=== PATIENT | male | born 1985 | race Caucasian/White ===

== ENCOUNTER 2023-10-10 10:04 | Outpatient (CLI) | payer MEDICAID | END 2023-10-10 10:05 | disposition critical access hospital (66) | LOC: EMS 10:04 | DX: T40.601A Poisoning by unspecified narcotics, accidental (unintentional), initial encounter (principal); R09.89 Other specified symptoms and signs involving the circulatory and respiratory systems | CPT/HCPCS: A0425; A0427; A0999 ==

== ENCOUNTER 2023-10-10 10:17 | Inpatient (IN) | payer MEDICAID ==
[2023-10-10] MEDS ORDERED: NALOXONE 0.4 MG/ML VIAL IVP STA (10:23)
[2023-10-10] MEDS ORDERED: ONDANSETRON 4 MG/2 ML VIAL IVP STA (10:23)
[2023-10-10] MEDS ORDERED: SODIUM CHLORIDE 0.9% 1,000 ML IV STA ×2 (10:23→12:47)
--- NOTE | 2023-10-10 10:31 | ED Physician Documentation ---
PD HPI OVERDOSE - Stated complaint Stated Complaint: OD - Chief complaint Chief Complaint: General - History obtained from History obtained from: EMS - Additional information Additional information: Patient is a 38-year-old male who was found unresponsive in a parked car near the [place] He initially was agonal with his respirations required bagging. He had oxygenation in the 80s on room air. He was initially given intranasal Narcan with no response and then given IV Narcan with improvement. Patient has woken up a little bit but has not provided any further information. He still appears quite drowsy. Per EMS there was marijuana found in the car but no other drug paraphernalia. History is limited as patient is not able to provide any. Review of Systems Unable to obtain: Confused PD PAST MEDICAL HISTORY - Allergies Allergies/Adverse Reactions: Allergies Allergy/AdvReac Type Severity Reaction Status Date / Time No Known Drug Allergies Allergy Verified 10/10/23 10:49 - Social History Does the pt smoke?: No Smoking Status: Never smoker PD ED PE NORMAL - General General: Well developed/nourished, Other (Alert to verbal, knows his name but otherwise not able to give any information) - HEENT HEENT: Atraumatic, PERRL, EOMI, Moist mucous membranes, Pharynx benign - Cardiac Cardiac: Strong equal pulses, Other (Tachycardic, regular rhythm) - Respiratory Respiratory: Other (Shallow respirations) - Abdomen Abdomen: Normal bowel sounds, Soft, Non tender, Non distended - Derm Derm: Warm and dry - Neuro Neuro: Other (Moves all extremities). No: Alert and oriented X 3 (Drowsy but responsive to verbal and painful stimuli) Results - Vitals Vitals: Vital Signs - 24 hr 10/10/23 10/10/23 10/10/23 10:23 10:26 10:41 Temperature 36 C L Heart Rate 129 H 103 H 125 H Respiratory 6 L 8 L 20 Rate Blood Pressure 129/92 H 116/62 122/84 H O2 Saturation 84 L 97 95 If not protocol : Oxygen Flow, liters/minute 10/10/23 10/10/23 10/10/23 11:08 11:15 11:18 Temperature Heart Rate 102 H 118 H 115 H Respiratory 18 19 14 Rate Blood Pressure 117/76 123/76 123/76 O2 Saturation 98 96 97 If not protocol 15 15 : Oxygen Flow, liters/minute 10/10/23 10/10/23 10/10/23 11:30 11:45 12:30 Temperature Heart Rate 98 96 93 Respiratory 19 20 20 Rate Blood Pressure 114/79 116/66 120/63 O2 Saturation 97 97 98 If not protocol 15 15 : Oxygen Flow, liters/minute 10/10/23 13:30 Temperature Heart Rate 99 Respiratory 18 Rate Blood Pressure 138/79 H O2 Saturation 95 If not protocol 15 : Oxygen Flow, liters/minute Oxygen O2 Source Non-rebreather mask - EKG (time done) 1036 EKG releavant findings:: EKG personally interpreted by author of this note. Relevant findings are: Rate 102, sinus tachycardia, no STEMI, QTc is 451, no prior for comparison - Labs Labs: Laboratory Tests 10/10/23 10/10/23 10/10/23 10:30 10:30 10:30 WBC 16.1 H RBC 5.85 Hgb 15.4 Hct 50.5 MCV 86.3 MCH 26.3 L MCHC 30.5 L RDW 14.7 Plt Count 353 MPV 9.1 Neut # (Auto) 12.9 H Lymph # (Auto) 1.6 [place] # (Auto) 1.3 H Eos # (Auto) 0.0 Baso # (Auto) 0.1 Absolute Nucleated RBC 0.00 Nucleated RBC % 0.0 Sodium 140 Potassium 4.1 Chloride 104 Carbon Dioxide 21 Anion Gap 15.0 H BUN 14 Creatinine 1.8 H Estimated GFR (MDRD) 42 L Glucose 109 H Lactic Acid Calcium 9.4 Magnesium 2.1 Total Bilirubin 0.4 AST 52 H ALT 61 H Alkaline Phosphatase 133 H Total Creatine Kinase 559 H B-Natriuretic Peptide 37 Total Protein 7.9 Albumin 4.6 Globulin 3.3 Albumin/Globulin Ratio 1.4 Lipase 128 H TSH 2.53 Salicylates < 1.5 Acetaminophen 0.2 Ethyl Alcohol < 10.0 10/10/23 13:24 WBC RBC Hgb Hct MCV MCH MCHC RDW Plt Count MPV Neut # (Auto) Lymph # (Auto) [place] # (Auto) Eos # (Auto) Baso # (Auto) Absolute Nucleated RBC Nucleated RBC % Sodium Potassium Chloride Carbon Dioxide Anion Gap BUN Creatinine Estimated GFR (MDRD) Glucose Lactic Acid 2.5 H Calcium Magnesium Total Bilirubin AST ALT Alkaline Phosphatase Total Creatine Kinase B-Natriuretic Peptide Total Protein Albumin Globulin Albumin/Globulin Ratio Lipase TSH Salicylates Acetaminophen Ethyl Alcohol PD Medical Decision Making - ED course Complexity details: reviewed results, re-evaluated patient, d/w patient ED course: Patient is a 38-year-old male presenting for evaluation after an overdose. He was found minimally responsive in a car with agonal respirations and hypoxia. He was given 2 doses of Narcan in the field, 1 intranasally and 1 IV with improvement in his respiratory effort as well as mentation. Here he is still requiring oxygen, still quite drowsy. Due to poor respiratory effort here he was given an additional dose of Narcan with improvement. However he continued to require oxygen. Labs were obtained including toxicology, CBC, chemistry. He does have an elevated white count of 16. Creatinine of 1.8 with unclear baseline. He is easily arousable to verbal stimuli but not able to answer questions really appropriately. At times he is able to tell me where he is but is unsure of what happened today. He does move all extremities. His x-ray demonstrates a consolidation in the left lobe which could be from aspiration. He was started on antibiotics. Blood cultures and a lactic were also obtained. We are unable to get a urine specimen in the emergency department As patient was not able to give a specimen. Due to ongoing hypoxia And somnolence discussed the case with admitting hospitalist will admit for further management. Do not think patient needs a Narcan drip at this time as he does have normal respiratory rate but is requiring oxygen. He also does wake up easily with verbal stimuli while in the emergency department. 1150 - Patient is more alert able to answer a few more questions. Knows that he is on [facility]. He still is not willing to answer many questions regarding what happened this morning or if he took any medications. States he could have had a chemical reaction but then states he does not know what he could have reacted to. 1340 - D/W Dr. San We will admit the patient for further management. Departure - Departure Disposition: ED Place in Observation Clinical Impression: Acute respiratory failure with hypoxia, CAP (community acquired pneumonia) Drug overdose Qualifiers: Encounter type: initial encounter Condition: Fair Discharge Date/Time: 10/10/23 14:47
[2023-10-10 10:38] LABS: BASOPHILS # (AUTO) 0.1 10^3/uL (0.0-0.1); BASOPHILS % (AUTO) 0.5 %; EOSINOPHILS % (AUTO) 0.2 %; HCT - HEMATOCRIT 50.5 % (42.0-52.0); HGB - HEMOGLOBIN 15.4 g/dL (14.0-18.0); LYMPHOCYTES # (AUTO) 1.6 10^3/uL (1.5-3.5); LYMPHOCYTES % (AUTO) 9.7 %; MEAN CORPUSCULAR HEMOGLOBIN 26.3 pg (27.0-31.0); MEAN CORPUSCULAR HGB CONC 30.5 g/dL (32.0-36.0); MEAN CORPUSCULAR VOLUME 86.3 fL (80.0-94.0); MEAN PLATELET VOLUME 9.1 fL (7.4-11.4); MONOCYTES # (AUTO) 1.3 10^3/uL (0.0-1.0); MONOCYTES % (AUTO) 8.2 %; NEUTROPHILS # (AUTO) 12.9 10^3/uL (1.5-6.6); NEUTROPHILS % (AUTO) 80.3 %; PLT - PLATELET COUNT 353 10^3/uL (130-450); RED BLOOD COUNT 5.85 10^6/uL (4.70-6.10); RED CELL DISTRIBUTION WIDTH 14.7 % (12.0-15.0); WHITE BLOOD COUNT 16.1 x10^3/uL (4.8-10.8)
[2023-10-10 10:56] LABS: ACETAMINOPHEN 0.2 ug/mL; ALBUMIN 4.6 g/dL (3.2-5.5); ALBUMIN/GLOBULIN RATIO 1.4 (1.0-2.2); ALKALINE PHOSPHATASE 133 IU/L (42-121); ALT ALANINE AMINOTRANSFERASE 61 IU/L (10-60); AST ASPARTATE AMINOTRANSFERASE 52 IU/L (10-42); BILIRUBIN,TOTAL 0.4 mg/dL (0.2-1.0); BUN - BLOOD UREA NITROGEN 14 mg/dL (6-20); CALCIUM 9.4 mg/dL (8.5-10.3); CARBON DIOXIDE - CO2 21 mmol/L (21-32); CHLORIDE 104 mmol/L (101-111); CK- CREATINE KINASE 559 IU/L (30-223); CREATININE 1.8 mg/dL (0.6-1.3); ETOH - ETHANOL < 10.0 mg/dL; GFR - MDRD 42 (>89); GLUCOSE 109 mg/dL (74-104); LIPASE 128 U/L (11-82); MAGNESIUM 2.1 mg/dL (1.7-2.3); POTASSIUM 4.1 mmol/L (3.5-4.5); SODIUM 140 mmol/L (135-145); TOTAL PROTEIN 7.9 g/dL (6.4-8.9)
--- NOTE | 2023-10-10 10:56 | XRAY Report ---
PROCEDURE: Chest 1 View X-Ray INDICATIONS: OD TECHNIQUE: One view of the chest was acquired. COMPARISON: None. FINDINGS: Left lower chest wall is excluded from the field of view, limiting evaluation. Surgical changes and devices: None. Lungs and pleura: Left lung multifocal patchy consolidation. Small left pleural effusion. No right p leural effusion. Right lung is clear. Mediastinum: Mediastinal contours appear normal. Heart size is normal. Bones and chest wall: No suspicious bony lesions. Overlying soft tissues appear unremarkable. IMPRESSION: Left lower chest wall is excluded from the field of view, limiting evaluation. 1.Left lung multifocal patchy consolidation suggestive of aspiration and/or pneumonia. 2.Small left pleural effusion. Reviewed by: Abdelrahman Swartz MD on 10/10/2023 10:55 AM [facility] Approved by: Abdelrahman Swartz MD on 10/10/2023 10:55 AM [facility] Station ID: [id number]
[2023-10-10 11:03] LABS: THYROID STIMULATING HORMONE 2.53 uIU/mL (0.34-5.60)
[2023-10-10 11:06] LABS: SALICYLATE < 1.5 mg/dL
[2023-10-10] MEDS ORDERED: AZITHROMYCIN INJ 500 MG in SODIUM CHLORIDE 0.9% 250 ML IV STA (12:50)
[2023-10-10] MEDS ORDERED: cefTRIAXone 1 GM VIAL IVP STA (12:50)
[2023-10-10] MEDS ORDERED: oxyCODONE 5 MG TABLET PO PRN (13:40)
[2023-10-10] MEDS ORDERED: ACETAMINOPHEN 325 MG TABLET PO PRN (13:40)
[2023-10-10] MEDS ORDERED: SODIUM CHLORIDE 0.9% 1,000 ML IV SCH (14:00)
--- NOTE | 2023-10-10 14:01 | HISTORY & PHYSICAL EXAMINATION ---
Chief Complaint - Chief Complaint Chief Complaint: Found unconscious History of Present Illness - Admitted From Admitted From:: His car parked on the street - History Obtained From Records [facility]ed[facility] History obtained from: Dr. Barba and his mother, Karina Heredia at [phone] Exam Limitations: Obtundation - History of Present Illness HPI Comment/Other: This is a 38-year-old male who lives in [facility] in [place]. 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 The patient is unable to give any meaningful history because of his sleepiness. I was able to get a hold of his mom who states that he does smoke cigarettes and he does smoke marijuana, but he has no history of alcohol abuse nor has he ever tried cocaine/heroin/LSD/methamphetamines to her knowledge. He was brought in by EMS. He was found in his car, it was parked and running [place] the [place] in [place]. He was in agonal respiration with O2 sat "low" but the number not stated. He received Narcan with minimal response. When he came to the emergency room temperature was 36, heart rate 129, blood pressure 129/92, respirations 6, and 84% on nasal cannula oxygen. In the emergency room the ER provider gave him Narcan IV push. He does wake up but is not verbal. Eyes were open but then he falls right back asleep. He received 2 L of IV fluids wide open. Chest x-ray had left lung multifocal opacity suggestive of aspiration. He was given Rocephin and azithromycin in the ER to treat that. He continues to be sleeping, minimally responsive, with normal vital signs. However he is on a 15 L nonrebreather and 02 sats at 97%. Emergency room provider has asked us to bring the patient in for xxpectant waiting. Hopefully he will recover from the substance he ingested. I specifically asked if he should go to the ICU or if he should be on a Narcan drip. At this time the emergency room provider I feel he does not need to do those things. In speaking to case management and reviewing [facility] criteria, he meets criteria for inpatient status. History - Past Medical History Cardiovascular: reports: None Respiratory: reports: None Neuro: reports: None Endocrine/Autoimmune: reports: None GI: reports: None : reports: None HEENT: reports: None Psych: reports: None Musculoskeletal: reports: None MRSA Hx?: No Other Past Medical History: The above negative family history was obtained from his mother over the phone when I called her. - Family & Social History Family History Comment/Other: Mom is 60 years old and has no major medical illnesses of diabetes, hypertension, cancer, heart attack or depression. Dad is 59 years old and also has no major medical illnesses. 1 sister is healthy. No children Living arrangement: At home Living Situation: With family Social History Notes: He lives with mom and dad. He does smoke cigarettes but she cannot tell me how much per day. He also smokes marijuana and she cannot tell me how much per day. 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 To her knowledge she does not have any history of alcohol abuse he does not have any history of recreational substance abuse other than the weed. - Substance History Use: Uses substance without health or social issues: Tobacco Abuse: Recurrent use of substance despite neg consequences: NONE Dependence: Experiences withdrawal or developed tolerances: NONE - POLST Patient has POLST: No POLST Status: Full Code Meds/Allgy - Allergies Allergies/Adverse Reactions: Allergies Allergy/AdvReac Type Severity Reaction Status Date / Time No Known Drug Allergies Allergy Verified 10/10/23 10:49 Review of Systems - Other Findings Other Findings: Review of systems unable to be obtained in this gentleman who is minimally resp onsive. Does open his eyes but unable to carry on a conversation Prior Level of Functionality: Per his mother, he is completely independent with activities of daily living. He drives a car, works, does his own laundry, helps clean the apartment. Full- time work. Exam - Vital Signs Reviewed Vital Signs: Yes Vital Signs: Vital Signs x48h Temp Pulse Resp BP Pulse Ox O2 Flow Rate 10/10/23 12:30 93 20 120/63 98 15 10/10/23 11:45 96 20 116/66 97 15 10/10/23 11:30 98 19 114/79 97 10/10/23 11:18 115 H 14 123/76 97 15 10/10/23 11:15 118 H 19 123/76 96 10/10/23 11:08 102 H 18 117/76 98 15 10/10/23 10:41 125 H 20 122/84 H 95 10/10/23 10:26 103 H 8 L 116/62 97 10/10/23 10:23 36 C L 129 H 6 L 129/92 H 84 L - Physical Exam General Appearance: positive: Moderate distress, Anxious, Other (Stocky male looks stated age, cannot sit still. Rocking back and forth in the bed, diaphoretic, unresponsive to voice commands. Does hear his mom but does not recognize her and calls her "Whats up doc". Occ smiles inappropriately to a question. No lucid thoughts or sentence structure) Eyes Bilateral: positive: PERRL (and are small but not pinpoint), EOMI ENT: positive: No signs of dehydration Neck: positive: No JVD. negative: Stiff neck Respiratory: positive: Rales (Left midlung and left base.), Other (Slight tachypnea but no use of accessory muscles. His breathing seems to be more from agitation.). negative: Wheezes, Rhonchi Cardiovascular: positive: Regular rate & rhythm, Tachycardia. negative: Systolic murmur Peripheral Pulses: positive: 1+ Abdomen: positive: Non-tender, No organomegaly, Nml bowel sounds, No distention, Other Skin: positive: Warm, Diaphoresis, Pallor Extremities: positive: Full ROM, No pedal edema Neurologic/Psychiatric: positive: CN's nml (2-12), Motor nml (No tremors. Spontaneously sitting himself up, swinging his arms around, lifting them above his head. Flexing and extending at the hips and the knees. Plantar and dorsiflexing his feet. Cannot find a comfortable position as he moves around the bed.), Disoriented to person, Disoriented to place, Disoriented to time, Slurred/abnml speech Conclusion/Plan - Problem List (1) Acute respiratory failure with hypoxia Conclusion/Plan: Due to combination of hypoventilation from a drug overdose as well as aspiration pneumonitis seen on chest x-ray. Patient will be admitted inpatient status. I initially put his status as observation and now I am changing him to inpatient with transfer to ICU since he requires quite a bit of care to keep him safe. He is already pulled out 1 IV. Nasal cannula or high flow nasal cannula to maintain O2 sats greater than 88% Treat underlying causes and expect resolution His mom is at the bedside and I asked permission to intubate him if I need to. I would do this mainly to control his respiration and control his IVs. He still has significant hypoxia and is not able to cooperate with us to keep the mask on. (2) Respiratory center depression Conclusion/Plan: At this time, until I receive the results of the toxicology screen, I am postulating that this is an opiate overdose. Whether fentanyl or heroin. Or prescription drugs. We will monitor the patient closely. Put him on telemetry, and continuous pulse oximetry. I am going to give him another dose of Narcan on MedSurg to see if he can respond to that to center his thought process and to improve his breathing. (3) Drug overdose Conclusion/Plan: Of unknown substance. Unable to urinate in a cup for toxicology screen. I will have the patient straight cathed to have the urine submitted. Supportive care will be provided and symptom management be ongoing including antipyretics, antiemetics, etc. Qualifiers: Encounter type: initial encounter (4) Aspiration into respiratory tract Conclusion/Plan: Patient is hypoxic due to the aspiration as well as the slowed respiratory rate. Treatment would be either metronidazole with amoxicillin, or Unasyn. He has no drug allergies. I will start him on Unasyn. Qualifiers: Encounter type: initial encounter Qualified Code(s): T17.908A - Unspecified foreign body in respiratory tract, part unspecified causing other injury, initial encounter - Lab Results Lab results reviewed: Yes Fish Bones: 10/10/23 10:30 10/10/23 10:30 - Diagnostic Imaging Results Diagnostic Imaging Results: positive: Final report reviewed - EKG Results EKG Interpreted Independently: No Core Measures - Anticipated LOS I expect patient to be DC'd or transferred within 96 hours.: Yes - DVT/VTE - Prophylaxis VTE/DVT Device ordered at admit?: Yes
[2023-10-10] MEDS ORDERED: NALOXONE 0.4 MG/ML VIAL IVP ONE (16:23)
[2023-10-10] MEDS ORDERED: LORazepam 2 MG/ML VIAL IVP STA (16:37)
[2023-10-10] MEDS ORDERED: METOPROLOL 5 MG/5 ML VIAL IVP STA (16:37)
[2023-10-10 17:04] LABS: ABG BASE EXCESS -6.8 mmol/L (-2.0-3.0); ABG OXYGEN SATURATION 94 % (94-98); ABG PCO2 56 mmHg (34-45); ABG PH 7.21 (7.35-7.45); ABG PO2 72 mmHg (80-100); ABG TCO2 23.7 MMOL/L (21.0-29.0)
[2023-10-10 17:05] LABS: ALLEN TEST POSITIVE
[2023-10-10 17:08] LABS: MUDS CUTOFF CONCENTRATIONS CUTOFF CONC BELOW:
[2023-10-10 17:09] LABS: BILIRUBIN,URINE NEGATIVE (NEGATIVE); GLUCOSE, URINE (UA) NEGATIVE (NEGATIVE); KETONES,URINE (UA) NEGATIVE (NEGATIVE); LEUKOCYTE ESTERASE, URINE NEGATIVE (NEGATIVE); NITRITE,URINE NEGATIVE (NEGATIVE); OCCULT BLOOD,URINE SMALL (NEGATIVE); PH,URINE 5.5 PH (5.0-7.5); PROTEIN,URINE 100 mg/dL (NEGATIVE); UROBILINOGEN,URINE 0.2 (NORMAL) E.U./dL (NORMAL)
[2023-10-10 17:12] LABS: CLARITY,URINE CLEAR (CLEAR)
[2023-10-10 17:15] LABS: BACTERIA,URINE Few /HPF (None Seen); RBC,URINE 0-5 /HPF (0-5); SQUAMOUS EPITHELIAL CELL,UR FEW Squamous (<= Few); WBC,URINE 0-3 /HPF (0-3)
[2023-10-10 17:18] LABS: AMPHETAMINE SCREEN,URINE NEGATIVE (NEGATIVE); BARBITURATE SCREEN,UR NEGATIVE (NEGATIVE); BENZODIAZEPINES SCREEN, URINE NEGATIVE (NEGATIVE); COCAINE SCREEN URINE POSITIVE (NEGATIVE); METHADONE SCREEN, URINE NEGATIVE (NEGATIVE); METHAMPHETAMINES SCREEN, URINE NEGATIVE (NEGATIVE); OPIATE SCREEN, URINE NEGATIVE (NEGATIVE); OXYCODONE SCREEN, URINE NEGATIVE (NEGATIVE); PROPOXYPHENE SCREEN, URINE NEGATIVE (NEGATIVE); THC CANNABINOID SCREEN, URINE POSITIVE (NEGATIVE); TRICYCLIC ANTIDEPRESSANT,URINE NEGATIVE (NEGATIVE)
--- NOTE | 2023-10-10 17:32 | XRAY Report ---
PROCEDURE: Chest 1 View X-Ray INDICATIONS: diaphoresis and sob TECHNIQUE: One view of the chest was acquired. COMPARISON: 10/10/2023 (earlier today) FINDINGS: Surgical changes and devices: None. Lungs and pleura: Multifocal patchy consolidation in the left lower lobe and lingula is significantl y worse compared to the earlier study today. No pneumothorax. The right lung is clear. Mediastinum: Mediastinal contours appear normal. Heart size is normal. Bones and chest wall: No suspicious bony lesions. Overlying soft tissues appear unremarkable. IMPRESSION: Multifocal left lung consolidation consistent with pneumonia, infectious or aspiration. S ignificantly worse compared to the earlier study. Reviewed by: Navarro Sutherland on 10/10/2023 4:31 PM [facility] Approved by: Navarro Sutherland on 10/10/2023 4:31 PM [facility] Station ID: [id number]
[2023-10-10 17:58] LABS: B. PARAPERTUSSIS- RESP PCR PAN NOT DETECTED; B. PERTUSSIS- RESP PCR PANEL NOT DETECTED; C. PNEUMONIAE- RESP PCR PANEL NOT DETECTED; CORONAVIRUS 229E-RESP PCR NOT DETECTED; CORONAVIRUS HKU1-RESP PCR NOT DETECTED; CORONAVIRUS NL63-RESP PCR NOT DETECTED; CORONAVIRUS OC43-RESP PCR NOT DETECTED; HUMAN METAPNEUMOVIRUS NOT DETECTED; INFLUENZA A- RESP PCR PANEL NOT DETECTED; INFLUENZA B - RESP PCR PANEL NOT DETECTED; M. PNEUMONIAE- RESP PCR PANEL NOT DETECTED; PARAINFLUENZA VIRUS 1 NOT DETECTED; PARAINFLUENZA VIRUS 2 NOT DETECTED; PARAINFLUENZA VIRUS 3 NOT DETECTED; PARAINFLUENZA VIRUS 4 NOT DETECTED; RHINOVIRUS/ENTEROVIRUS NOT DETECTED; RSV- RESP PCR PANEL NOT DETECTED; SARS-CoV-2 -RESP PCR PANEL NOT DETECTED
[2023-10-10] MEDS: SODIUM CHLORIDE FLUSH 0.9% 10 ML SYRINGE IVP SCH (18:03)
[2023-10-10] MEDS: AMPICILLIN/SULBACTAM 1.5 GM in SODIUM CHLORIDE 0.9% MINIBAG 100 ML IV SCH (18:16)
[2023-10-10] MEDS ORDERED: LORazepam 2 MG/ML VIAL IVP PRN (19:22)
[2023-10-11] MEDS: AMPICILLIN/SULBACTAM 1.5 GM in SODIUM CHLORIDE 0.9% MINIBAG 100 ML IV SCH ×5 (00:41→23:48)
[2023-10-11] MEDS: SODIUM CHLORIDE FLUSH 0.9% 10 ML SYRINGE IVP SCH ×3 (00:41→17:23)
[2023-10-11] MEDS: SODIUM CHLORIDE FLUSH 0.9% 10 ML SYRINGE IVP PRN ×2 (04:06→06:08)
[2023-10-11 05:02] LABS: BASOPHILS % (AUTO) 0.9 %; HCT - HEMATOCRIT 45.1 % (42.0-52.0); HGB - HEMOGLOBIN 13.8 g/dL (14.0-18.0); LYMPHOCYTES % (AUTO) 10.4 %; MEAN CORPUSCULAR HEMOGLOBIN 26.3 pg (27.0-31.0); MEAN CORPUSCULAR HGB CONC 30.6 g/dL (32.0-36.0); MEAN CORPUSCULAR VOLUME 86.1 fL (80.0-94.0); MEAN PLATELET VOLUME 9.5 fL (7.4-11.4); MONOCYTES % (AUTO) 4.8 %; NEUTROPHILS % (AUTO) 83.6 %; PLT - PLATELET COUNT 246 10^3/uL (130-450); RED BLOOD COUNT 5.24 10^6/uL (4.70-6.10); RED CELL DISTRIBUTION WIDTH 14.9 % (12.0-15.0); WHITE BLOOD COUNT 13.7 x10^3/uL (4.8-10.8)
[2023-10-11 05:29] LABS: FERRITIN 496.4 ng/mL (23.9-336.2)
[2023-10-11 05:38] LABS: ALBUMIN 3.8 g/dL (3.2-5.5); ALBUMIN/GLOBULIN RATIO 1.5 (1.0-2.2); BILIRUBIN,TOTAL 0.6 mg/dL (0.2-1.0); CALCIUM 8.7 mg/dL (8.5-10.3); CREATININE 1.1 mg/dL (0.6-1.3); POTASSIUM 4.6 mmol/L (3.5-4.5); TOTAL PROTEIN 6.4 g/dL (6.4-8.9)
[2023-10-11 05:41] LABS: ABNORMAL LYMPHS % (MANUAL) 0 %
[2023-10-11 06:58] LABS: BAND NEUTROPHILS % (MANUAL) 19 %; DIFFERENTIAL COMMENT MANUAL DIFFERENTIAL; LYMPHOCYTES % (MANUAL) 29 %; METAMYELOCYTES % (MANUAL) 1 %; MONOCYTES # (MANUAL) 1.2 10^3/uL (0.0-1.0); MYELOCYTES % (MANUAL) 1 %; NEUTROPHILS # (MANUAL) 8.2 10^3/uL (1.5-6.6); PLATELET ESTIMATE, MANUAL NORMAL (130-450,000) (NORMAL); RBC MORPHOLOGY (MULTIPLE) NORMAL APPEARANCE (NORMAL)
--- NOTE | 2023-10-11 10:22 | PROVIDER PROGRESS NOTE ---
Subjective - Subjective Pt reports feeling: Improved (He sleeps most of the day, awakens to voice and is able to converse but falls asleep after 2-3 sentences.) Objective - Vital Signs/Intake & Output Vital Signs: Vital Signs Temp Pulse Resp BP Pulse Ox O2 Flow Rate 10/11/23 10:00 78 13 118/63 93 4 10/11/23 09:00 106 H 16 120/71 93 4 10/11/23 08:00 36.2 C L 106 H 20 121/68 94 4 10/11/23 07:00 96 11 L 120/75 97 2 Intake & Output: Intake & Output 10/08/23 10/09/23 10/10/23 10/11/23 23:59 23:59 23:59 23:59 Intake Total 2350 2700 Output Total 975 660 Balance 1375 2039 - Objective General Appearance: positive: Lethargic (He sleeps most of the day, awakens to voice and is able to converse but falls asleep after 2-3 sentences.), Other (Face is diaphoretic) Eyes Bilateral: positive: No lid inflammation ENT: positive: ENT inspection nml, No signs of dehydration Neck: positive: Nml inspection, No JVD Respiratory: positive: No respiratory distress, Rhonchi Cardiovascular: positive: Regular rate & rhythm, No murmur Abdomen: positive: Non-tender, Nml bowel sounds, No distention Skin: positive: Warm, Diaphoresis Extremities: positive: Non-tender, No pedal edema Neurologic/Psychiatric: positive: Oriented x3 (He sleeps most of the day, awak ens to voice and is able to converse and can remember events of yesterday, but falls asleep after 2-3 sentences.) - Lab Results Fish Bones: 10/11/23 04:45 10/11/23 04:45 Other Labs: Lab Results x24hrs 10/11/23 10/11/23 10/11/23 Range/Units 04:45 04:45 04:45 WBC 13.7 H (4.8-10.8) x10^3/uL RBC 5.24 (4.70-6.10) 10^6/uL Hgb 13.8 L (14.0-18.0) g/dL Hct 45.1 (42.0-52.0) % MCV 86.1 (80.0-94.0) fL MCH 26.3 L (27.0-31.0) pg MCHC 30.6 L (32.0-36.0) g/dL RDW 14.9 (12.0-15.0) % Plt Count 246 (130-450) 10^3/uL MPV 9.5 (7.4-11.4) fL Neut # (Auto) Not Reportable (1.5-6.6) 10^3/uL Lymph # (Auto) Not Reportable (1.5-3.5) 10^3/uL [place] # (Auto) Not Reportable (0.0-1.0) 10^3/uL Eos # (Auto) Not Reportable (0.0-0.7) 10^3/uL Baso # (Auto) Not Reportable (0.0-0.1) 10^3/uL Absolute Nucleated RBC Not Reportable x10^3/uL Total Counted 100 Band Neuts % (Manual) 19 H (0 - 10) % Abnorm Lymph % (Manual) 0 % Metamyelocytes % 1 H ( - 0) % Myelocytes % 1 H ( - 0) % Nucleated RBC % Not Reportable /100WBC Neutrophils # (Manual) 8.2 H (1.5-6.6) 10^3/uL Lymphocytes # (Manual) 4.0 H (1.5-3.5) 10^3/uL Monocytes # (Manual) 1.2 H (0.0-1.0) 10^3/uL Eosinophils # (Manual) 0.0 (0-0.7) 10^3/uL Basophils # (Manual) 0.0 (0-0.1) 10^3/uL Differential Comment MANUAL DIFFERENTIAL Platelet Estimate NORMAL (130-450,000) (NORMAL) RBC Morph Micro Appear NORMAL APPEARANCE (NORMAL) Bld Gas Analysis Time Sample Site ABG pH (7.35-7.45) ABG pCO2 (34-45) mmHg ABG pO2 (80-100) mmHg ABG HCO3 (22.0-26.0) mmol/L ABG Total CO2 (21.0-29.0) MMOL/L ABG O2 Saturation (94-98) % ABG Base Excess (-2.0-3.0) mmol/L Satya Test O2 Delivery Device FiO2 Sodium 137 (135-145) mmol/L Potassium 4.6 H (3.5-4.5) mmol/L Chloride 104 (101-111) mmol/L Carbon Dioxide 27 (21-32) mmol/L Anion Gap 6.0 (6-13) BUN 18 (6-20) mg/dL Creatinine 1.1 (0.6-1.3) mg/dL Estimated GFR (MDRD) 75 L (>89) Glucose 127 H (74-104) mg/dL Lactic Acid 1.4 (0.5-2.2) mmol/L Calcium 8.7 (8.5-10.3) mg/dL Magnesium (1.7-2.3) mg/dL Ferritin 496.4 H (23.9-336.2) ng/mL Total Bilirubin 0.6 (0.2-1.0) mg/dL AST 117 H (10-42) IU/L ALT 110 H (10-60) IU/L Alkaline Phosphatase 84 (42-121) IU/L Total Creatine Kinase (30-223) IU/L B-Natriuretic Peptide (5-100) pg/mL Total Protein 6.4 (6.4-8.9) g/dL Albumin 3.8 (3.2-5.5) g/dL Globulin 2.6 (2.1-4.2) g/dL Albumin/Globulin Ratio 1.5 (1.0-2.2) Lipase (11-82) U/L TSH (0.34-5.60) uIU/mL Urine Color Urine Clarity (CLEAR) Urine pH (5.0-7.5) PH Ur Specific [place] (1.002-1.030) Urine Protein (NEGATIVE) mg/dL Urine Glucose (UA) (NEGATIVE) mg/dL Urine Ketones (NEGATIVE) mg/dL Urine Occult Blood (NEGATIVE) Urine Nitrite (NEGATIVE) Urine Bilirubin (NEGATIVE) Urine Urobilinogen (NORMAL) E.U./dL Ur Leukocyte Esterase (NEGATIVE) Urine RBC (0-5) /HPF Urine WBC (0-3) /HPF Ur Squamous Epith Cells (<= Few) Urine Bacteria (None Seen) /HPF Ur Microscopic Review Urine Culture Comments Nasal Adenovirus (PCR) Nasal B. parapertussis DNA (PCR) Nasal Coronavir 229E PCR Nasal Coronavir HKU1 PCR Nasal Coronavir NL63 PCR Nasal Coronavir OC43 PCR Nasal Enterovir/Rhinovir PCR Nasal Influenza B PCR Nasal Influenza A PCR Nasal Parainfluen 1 PCR Nasal Parainfluen 2 PCR Nasal Parainfluen 3 PCR Nasal Parainfluen 4 PCR Nasal RSV (PCR) Nasal Screen MRSA (PCR) (NEGATIVE) Nasal B.pertussis DNA PCR Nasal C.pneumoniae (PCR) Bigg Human Metapneumo PCR Nasal M.pneumoniae (PCR) Nasal SARS-CoV-2 (PCR) Salicylates mg/dL Urine Opiates Screen (NEGATIVE) Ur Oxycodone Screen (NEGATIVE) Urine Methadone Screen (NEGATIVE) Ur Propoxyphene Screen (NEGATIVE) Acetaminophen ug/mL Ur Barbiturates Screen (NEGATIVE) Ur Tricyclics Screen (NEGATIVE) Ur Phencyclidine Scrn (NEGATIVE) Ur Amphetamine Screen (NEGATIVE) U Methamphetamines Scrn (NEGATIVE) U Benzodiazepines Scrn (NEGATIVE) Urine Cocaine Screen (NEGATIVE) U Cannabinoids Screen (NEGATIVE) Ethyl Alcohol mg/dL 10/10/23 10/10/23 10/10/23 Range/Units 16:50 16:50 16:50 WBC (4.8-10.8) x10^3/uL RBC (4.70-6.10) 10^6/uL Hgb (14.0-18.0) g/dL Hct (42.0-52.0) % MCV (80.0-94.0) fL MCH (27.0-31.0) pg MCHC (32.0-36.0) g/dL RDW (12.0-15.0) % Plt Count (130-450) 10^3/uL MPV (7.4-11.4) fL Neut # (Auto) (1.5-6.6) 10^3/uL Lymph # (Auto) (1.5-3.5) 10^3/uL [place] # (Auto) (0.0-1.0) 10^3/uL Eos # (Auto) (0.0-0.7) 10^3/uL Baso # (Auto) (0.0-0.1) 10^3/uL Absolute Nucleated RBC x10^3/uL Total Counted Band Neuts % (Manual) (0 - 10) % Abnorm Lymph % (Manual) % Metamyelocytes % ( - 0) % Myelocytes % ( - 0) % Nucleated RBC % /100WBC Neutrophils # (Manual) (1.5-6.6) 10^3/uL Lymphocytes # (Manual) (1.5-3.5) 10^3/uL Monocytes # (Manual) (0.0-1.0) 10^3/uL Eosinophils # (Manual) (0-0.7) 10^3/uL Basophils # (Manual) (0-0.1) 10^3/uL Differential Comment Platelet Estimate (NORMAL) RBC Morph Micro Appear (NORMAL) Bld Gas Analysis Time 1701 Sample Site RIGHT RADIAL ABG pH 7.21 L (7.35-7.45) ABG pCO2 56 H (34-45) mmHg ABG pO2 72 L (80-100) mmHg ABG HCO3 22.0 (22.0-26.0) mmol/L ABG Total CO2 23.7 (21.0-29.0) MMOL/L ABG O2 Saturation 94 (94-98) % ABG Base Excess -6.8 L (-2.0-3.0) mmol/L Satya Test POSITIVE O2 Delivery Device NON REBREATHER MASK FiO2 100.00 Sodium (135-145) mmol/L Potassium (3.5-4.5) mmol/L Chloride (101-111) mmol/L Carbon Dioxide (21-32) mmol/L Anion Gap (6-13) BUN (6-20) mg/dL Creatinine (0.6-1.3) mg/dL Estimated GFR (MDRD) (>89) Glucose (74-104) mg/dL Lactic Acid (0.5-2.2) mmol/L Calcium (8.5-10.3) mg/dL Magnesium (1.7-2.3) mg/dL Ferritin (23.9-336.2) ng/mL Total Bilirubin (0.2-1.0) mg/dL AST (10-42) IU/L ALT (10-60) IU/L Alkaline Phosphatase (42-121) IU/L Total Creatine Kinase (30-223) IU/L B-Natriuretic Peptide (5-100) pg/mL Total Protein (6.4-8.9) g/dL Albumin (3.2-5.5) g/dL Globulin (2.1-4.2) g/dL Albumin/Globulin Ratio (1.0-2.2) Lipase (11-82) U/L TSH (0.34-5.60) uIU/mL Urine Color YELLOW Urine Clarity CLEAR (CLEAR) Urine pH 5.5 (5.0-7.5) PH Ur Specific [place] >=1.030 H (1.002-1.030) Urine Protein 100 H (NEGATIVE) mg/dL Urine Glucose (UA) NEGATIVE (NEGATIVE) mg/dL Urine Ketones NEGATIVE (NEGATIVE) mg/dL Urine Occult Blood SMALL H (NEGATIVE) Urine Nitrite NEGATIVE (NEGATIVE) Urine Bilirubin NEGATIVE (NEGATIVE) Urine Urobilinogen 0.2 (NORMAL) (NORMAL) E.U./dL Ur Leukocyte Esterase NEGATIVE (NEGATIVE) Urine RBC 0-5 (0-5) /HPF Urine WBC 0-3 (0-3) /HPF Ur Squamous Epith Cells FEW Squamous (<= Few) Urine Bacteria Few (None Seen) /HPF Ur Microscopic Review INDICATED Urine Culture Comments NOT INDICATED Nasal Adenovirus (PCR) Nasal B. parapertussis DNA (PCR) Nasal Coronavir 229E PCR Nasal Coronavir HKU1 PCR Nasal Coronavir NL63 PCR Nasal Coronavir OC43 PCR Nasal Enterovir/Rhinovir PCR Nasal Influenza B PCR Nasal Influenza A PCR Nasal Parainfluen 1 PCR Nasal Parainfluen 2 PCR Nasal Parainfluen 3 PCR Nasal Parainfluen 4 PCR Nasal RSV (PCR) Nasal Screen MRSA (PCR) NEGATIVE (NEGATIVE) Nasal B.pertussis DNA PCR Nasal C.pneumoniae (PCR) Bigg Human Metapneumo PCR Nasal M.pneumoniae (PCR) Nasal SARS-CoV-2 (PCR) Salicylates mg/dL Urine Opiates Screen NEGATIVE (NEGATIVE) Ur Oxycodone Screen NEGATIVE (NEGATIVE) Urine Methadone Screen NEGATIVE (NEGATIVE) Ur Propoxyphene Screen NEGATIVE (NEGATIVE) Acetaminophen ug/mL Ur Barbiturates Screen NEGATIVE (NEGATIVE) Ur Tricyclics Screen NEGATIVE (NEGATIVE) Ur Phencyclidine Scrn NEGATIVE (NEGATIVE) Ur Amphetamine Screen NEGATIVE (NEGATIVE) U Methamphetamines Scrn NEGATIVE (NEGATIVE) U Benzodiazepines Scrn NEGATIVE (NEGATIVE) Urine Cocaine Screen POSITIVE H (NEGATIVE) U Cannabinoids Screen POSITIVE H (NEGATIVE) Ethyl Alcohol mg/dL 10/10/23 10/10/23 10/10/23 Range/Units 16:50 13:24 10:30 WBC (4.8-10.8) x10^3/uL RBC (4.70-6.10) 10^6/uL Hgb (14.0-18.0) g/dL Hct (42.0-52.0) % MCV (80.0-94.0) fL MCH (27.0-31.0) pg MCHC (32.0-36.0) g/dL RDW (12.0-15.0) % Plt Count (130-450) 10^3/uL MPV (7.4-11.4) fL Neut # (Auto) (1.5-6.6) 10^3/uL Lymph # (Auto) (1.5-3.5) 10^3/uL [place] # (Auto) (0.0-1.0) 10^3/uL Eos # (Auto) (0.0-0.7) 10^3/uL Baso # (Auto) (0.0-0.1) 10^3/uL Absolute Nucleated RBC x10^3/uL Total Counted Band Neuts % (Manual) (0 - 10) % Abnorm Lymph % (Manual) % Metamyelocytes % ( - 0) % Myelocytes % ( - 0) % Nucleated RBC % /100WBC Neutrophils # (Manual) (1.5-6.6) 10^3/uL Lymphocytes # (Manual) (1.5-3.5) 10^3/uL Monocytes # (Manual) (0.0-1.0) 10^3/uL Eosinophils # (Manual) (0-0.7) 10^3/uL Basophils # (Manual) (0-0.1) 10^3/uL Differential Comment Platelet Estimate (NORMAL) RBC Morph Micro Appear (NORMAL) Bld Gas Analysis Time Sample Site ABG pH (7.35-7.45) ABG pCO2 (34-45) mmHg ABG pO2 (80-100) mmHg ABG HCO3 (22.0-26.0) mmol/L ABG Total CO2 (21.0-29.0) MMOL/L ABG O2 Saturation (94-98) % ABG Base Excess (-2.0-3.0) mmol/L Satya Test O2 Delivery Device FiO2 Sodium (135-145) mmol/L Potassium (3.5-4.5) mmol/L Chloride (101-111) mmol/L Carbon Dioxide (21-32) mmol/L Anion Gap (6-13) BUN (6-20) mg/dL Creatinine (0.6-1.3) mg/dL Estimated GFR (MDRD) (>89) Glucose (74-104) mg/dL Lactic Acid 2.5 H (0.5-2.2) mmol/L Calcium (8.5-10.3) mg/dL Magnesium (1.7-2.3) mg/dL Ferritin (23.9-336.2) ng/mL Total Bilirubin (0.2-1.0) mg/dL AST (10-42) IU/L ALT (10-60) IU/L Alkaline Phosphatase (42-121) IU/L Total Creatine Kinase (30-223) IU/L B-Natriuretic Peptide 37 (5-100) pg/mL Total Protein (6.4-8.9) g/dL Albumin (3.2-5.5) g/dL Globulin (2.1-4.2) g/dL Albumin/Globulin Ratio (1.0-2.2) Lipase (11-82) U/L TSH (0.34-5.60) uIU/mL Urine Color Urine Clarity (CLEAR) Urine pH (5.0-7.5) PH Ur Specific [place] (1.002-1.030) Urine Protein (NEGATIVE) mg/dL Urine Glucose (UA) (NEGATIVE) mg/dL Urine Ketones (NEGATIVE) mg/dL Urine Occult Blood (NEGATIVE) Urine Nitrite (NEGATIVE) Urine Bilirubin (NEGATIVE) Urine Urobilinogen (NORMAL) E.U./dL Ur Leukocyte Esterase (NEGATIVE) Urine RBC (0-5) /HPF Urine WBC (0-3) /HPF Ur Squamous Epith Cells (<= Few) Urine Bacteria (None Seen) /HPF Ur Microscopic Review Urine Culture Comments Nasal Adenovirus (PCR) NOT DETECTED Nasal B. parapertussis DNA (PCR) NOT DETECTED Nasal Coronavir 229E PCR NOT DETECTED Nasal Coronavir HKU1 PCR NOT DETECTED Nasal Coronavir NL63 PCR NOT DETECTED Nasal Coronavir OC43 PCR NOT DETECTED Nasal Enterovir/Rhinovir PCR NOT DETECTED Nasal Influenza B PCR NOT DETECTED Nasal Influenza A PCR NOT DETECTED Nasal Parainfluen 1 PCR NOT DETECTED Nasal Parainfluen 2 PCR NOT DETECTED Nasal Parainfluen 3 PCR NOT DETECTED Nasal Parainfluen 4 PCR NOT DETECTED Nasal RSV (PCR) NOT DETECTED Nasal Screen MRSA (PCR) (NEGATIVE) Nasal B.pertussis DNA PCR NOT DETECTED Nasal C.pneumoniae (PCR) NOT DETECTED Bigg Human Metapneumo PCR NOT DETECTED Nasal M.pneumoniae (PCR) NOT DETECTED Nasal SARS-CoV-2 (PCR) NOT DETECTED Salicylates mg/dL Urine Opiates Screen (NEGATIVE) Ur Oxycodone Screen (NEGATIVE) Urine Methadone Screen (NEGATIVE) Ur Propoxyphene Screen (NEGATIVE) Acetaminophen ug/mL Ur Barbiturates Screen (NEGATIVE) Ur Tricyclics Screen (NEGATIVE) Ur Phencyclidine Scrn (NEGATIVE) Ur Amphetamine Screen (NEGATIVE) U Methamphetamines Scrn (NEGATIVE) U Benzodiazepines Scrn (NEGATIVE) Urine Cocaine Screen (NEGATIVE) U Cannabinoids Screen (NEGATIVE) Ethyl Alcohol mg/dL 10/10/23 10/10/23 Range/Units 10:30 10:30 WBC 16.1 H (4.8-10.8) x10^3/uL RBC 5.85 (4.70-6.10) 10^6/uL Hgb 15.4 (14.0-18.0) g/dL Hct 50.5 (42.0-52.0) % MCV 86.3 (80.0-94.0) fL MCH 26.3 L (27.0-31.0) pg MCHC 30.5 L (32.0-36.0) g/dL RDW 14.7 (12.0-15.0) % Plt Count 353 (130-450) 10^3/uL MPV 9.1 (7.4-11.4) fL Neut # (Auto) 12.9 H (1.5-6.6) 10^3/uL Lymph # (Auto) 1.6 (1.5-3.5) 10^3/uL [place] # (Auto) 1.3 H (0.0-1.0) 10^3/uL Eos # (Auto) 0.0 (0.0-0.7) 10^3/uL Baso # (Auto) 0.1 (0.0-0.1) 10^3/uL Absolute Nucleated RBC 0.00 x10^3/uL Total Counted Band Neuts % (Manual) (0 - 10) % Abnorm Lymph % (Manual) % Metamyelocytes % ( - 0) % Myelocytes % ( - 0) % Nucleated RBC % 0.0 /100WBC Neutrophils # (Manual) (1.5-6.6) 10^3/uL Lymphocytes # (Manual) (1.5-3.5) 10^3/uL Monocytes # (Manual) (0.0-1.0) 10^3/uL Eosinophils # (Manual) (0-0.7) 10^3/uL Basophils # (Manual) (0-0.1) 10^3/uL Differential Comment Platelet Estimate (NORMAL) RBC Morph Micro Appear (NORMAL) Bld Gas Analysis Time Sample Site ABG pH (7.35-7.45) ABG pCO2 (34-45) mmHg ABG pO2 (80-100) mmHg ABG HCO3 (22.0-26.0) mmol/L ABG Total CO2 (21.0-29.0) MMOL/L ABG O2 Saturation (94-98) % ABG Base Excess (-2.0-3.0) mmol/L Satya Test O2 Delivery Device FiO2 Sodium 140 (135-145) mmol/L Potassium 4.1 (3.5-4.5) mmol/L Chloride 104 (101-111) mmol/L Carbon Dioxide 21 (21-32) mmol/L Anion Gap 15.0 H (6-13) BUN 14 (6-20) mg/dL Creatinine 1.8 H (0.6-1.3) mg/dL Estimated GFR (MDRD) 42 L (>89) Glucose 109 H (74-104) mg/dL Lactic Acid (0.5-2.2) mmol/L Calcium 9.4 (8.5-10.3) mg/dL Magnesium 2.1 (1.7-2.3) mg/dL Ferritin (23.9-336.2) ng/mL Total Bilirubin 0.4 (0.2-1.0) mg/dL AST 52 H (10-42) IU/L ALT 61 H (10-60) IU/L Alkaline Phosphatase 133 H (42-121) IU/L Total Creatine Kinase 559 H (30-223) IU/L B-Natriuretic Peptide (5-100) pg/mL Total Protein 7.9 (6.4-8.9) g/dL Albumin 4.6 (3.2-5.5) g/dL Globulin 3.3 (2.1-4.2) g/dL Albumin/Globulin Ratio 1.4 (1.0-2.2) Lipase 128 H (11-82) U/L TSH 2.53 (0.34-5.60) uIU/mL Urine Color Urine Clarity (CLEAR) Urine pH (5.0-7.5) PH Ur Specific [place] (1.002-1.030) Urine Protein (NEGATIVE) mg/dL Urine Glucose (UA) (NEGATIVE) mg/dL Urine Ketones (NEGATIVE) mg/dL Urine Occult Blood (NEGATIVE) Urine Nitrite (NEGATIVE) Urine Bilirubin (NEGATIVE) Urine Urobilinogen (NORMAL) E.U./dL Ur Leukocyte Esterase (NEGATIVE) Urine RBC (0-5) /HPF Urine WBC (0-3) /HPF Ur Squamous Epith Cells (<= Few) Urine Bacteria (None Seen) /HPF Ur Microscopic Review Urine Culture Comments Nasal Adenovirus (PCR) Nasal B. parapertussis DNA (PCR) Nasal Coronavir 229E PCR Nasal Coronavir HKU1 PCR Nasal Coronavir NL63 PCR Nasal Coronavir OC43 PCR Nasal Enterovir/Rhinovir PCR Nasal Influenza B PCR Nasal Influenza A PCR Nasal Parainfluen 1 PCR Nasal Parainfluen 2 PCR Nasal Parainfluen 3 PCR Nasal Parainfluen 4 PCR Nasal RSV (PCR) Nasal Screen MRSA (PCR) (NEGATIVE) Nasal B.pertussis DNA PCR Nasal C.pneumoniae (PCR) Bigg Human Metapneumo PCR Nasal M.pneumoniae (PCR) Nasal SARS-CoV-2 (PCR) Salicylates < 1.5 mg/dL Urine Opiates Screen (NEGATIVE) Ur Oxycodone Screen (NEGATIVE) Urine Methadone Screen (NEGATIVE) Ur Propoxyphene Screen (NEGATIVE) Acetaminophen 0.2 ug/mL Ur Barbiturates Screen (NEGATIVE) Ur Tricyclics Screen (NEGATIVE) Ur Phencyclidine Scrn (NEGATIVE) Ur Amphetamine Screen (NEGATIVE) U Methamphetamines Scrn (NEGATIVE) U Benzodiazepines Scrn (NEGATIVE) Urine Cocaine Screen (NEGATIVE) U Cannabinoids Screen (NEGATIVE) Ethyl Alcohol < 10.0 mg/dL Assessment/Plan - Problem List (1) Acute respiratory failure with hypoxia Impression: Due to combination of hypoventilation from Fentanyl as well as aspiration pneumonitis seen on chest x-ray. Plan: Remain in ICU today since he is mostly somnolent, still hypoxic and still requires quite a bit of care to keep him safe (pulled out 1 IV). Nasal cannula or high flow nasal cannula to maintain O2 sats greater than 90% Treat underlying causes and expect resolution (2) Respiratory center depression Conclusion/Plan: Yesterday the admitting Hospitalist wrote she postulated that this was an opiate overdose, fentanyl or heroin, or prescription drugs. He did awake to Narcan pushes, but was not on a Narcan drip. Today after I awoke the patient and asked him what happened, he said "fentanyl" Plan: Remain in the ICU because he is still somnolent and hypoxic, monitor the patient closely continuous pulse oximetry. (3) Drug overdose Conclusion/Plan: Today after I awoke the patient and asked him what happened, he said "fentanyl" He is now starting to withdraw with marked diaphoresis today His CK total was elevated at 559 Plan: Will recheck CK, re poss Rhabdomyolysis Supportive care will be provided and symptom management be ongoing including antipyretics, antiemetics, etc. consult requested re: drug use (4) Aspiration into respiratory tract Conclusion/Plan: Patient was hypoxic due to the aspiration as well as the slowed respiratory rate. Today he is still hypoxic but WBC improved from 16 yest to 13, after antibx started Plan: Treatment would be either metronidazole with amoxicillin, or Unasyn. He was started on Unasyn, will cont Unasyn (5) Elevated LFTs No known history of hepatitis according to his mom. We do not know if he is an IV drug abuser or alcoholic. Possibly he was hypotensive to get shock liver. AST 52>> 117, ALT 61>> 110, bili has been normal, Alk Phos 133 >> 84, also Lipase 128 and was not rechecked Plan: Avoid hepatotoxins Await hepatitis panel sent today Follow LFTs daily Recheck Lipase (6) Rhabdomyolysis Conclusion/Plan: CK 52 >> 2705. This is likely from him being unconscious and laying in the same position for a long time Plan: Avoid nephrotoxins Continue with IV fluids while he is still somnolent and unable to take oral fluids Follow CK till it starts dropping (7) Lactic acidosis. Resolved Most likely this was from his near respiratory arrest from what ever drug(s) he took. This could be because of the aspiration PNA as well. He also apparently has liver disease. He did not appear septic
--- NOTE | 2023-10-11 11:02 | PHARMACY PROGRESS NOTE ---
- Best Possible Medication History Admit Date and Time: 10/10/23 5300 Processed by: Pharmacy Medication History completed: Yes Patient Interview: Completed As the person ultimately responsible for medication therapy, providers are able to order a medication from an existing home medication list in [facility] via the "Reconcile Routine" prior to Confirmation of that medication by print support specialist. Such practice is discouraged except when the physician, in their clinical madeleine gment, deems that a medical need exists for a medication without regard to previous use.
[2023-10-11] MEDS ORDERED: LORazepam 2 MG/ML VIAL IVP PRN (11:17)
[2023-10-11] MEDS: DEXTROSE 5%-0.9% NACL 1,000 ML IV SCH ×2 (11:32→23:49)
[2023-10-12] MEDS: SODIUM CHLORIDE FLUSH 0.9% 10 ML SYRINGE IVP SCH ×4 (00:31→23:47)
[2023-10-12 03:10] LABS: HBsAG SCREEN Negative (Negative); HCV AB Non Reactive (Non Reactive); HEPATITIS B CORE IGM AB Negative (Negative)
[2023-10-12 04:28] LABS: BASOPHILS % (AUTO) 0.3 %; EOSINOPHILS # (AUTO) 0.1 10^3/uL (0.0-0.7); EOSINOPHILS % (AUTO) 1.2 %; HCT - HEMATOCRIT 38.6 % (42.0-52.0); HGB - HEMOGLOBIN 11.9 g/dL (14.0-18.0); LYMPHOCYTES # (AUTO) 2.4 10^3/uL (1.5-3.5); LYMPHOCYTES % (AUTO) 21.1 %; MEAN CORPUSCULAR HEMOGLOBIN 26.4 pg (27.0-31.0); MEAN CORPUSCULAR HGB CONC 30.8 g/dL (32.0-36.0); MEAN CORPUSCULAR VOLUME 85.8 fL (80.0-94.0); MEAN PLATELET VOLUME 9.7 fL (7.4-11.4); MONOCYTES # (AUTO) 0.9 10^3/uL (0.0-1.0); MONOCYTES % (AUTO) 7.8 %; NEUTROPHILS % (AUTO) 69.3 %; PLT - PLATELET COUNT 211 10^3/uL (130-450); RED CELL DISTRIBUTION WIDTH 14.6 % (12.0-15.0); WHITE BLOOD COUNT 11.5 x10^3/uL (4.8-10.8)
[2023-10-12 04:46] LABS: ALBUMIN 3.4 g/dL (3.2-5.5); ALBUMIN/GLOBULIN RATIO 1.4 (1.0-2.2); BILIRUBIN,TOTAL 0.5 mg/dL (0.2-1.0); CREATININE 0.8 mg/dL (0.6-1.3); POTASSIUM 3.8 mmol/L (3.5-4.5); TOTAL PROTEIN 5.9 g/dL (6.4-8.9)
[2023-10-12] MEDS: AMPICILLIN/SULBACTAM 1.5 GM in SODIUM CHLORIDE 0.9% MINIBAG 100 ML IV SCH ×4 (05:46→23:45)
[2023-10-12] MEDS: DEXTROSE 5%-0.9% NACL 1,000 ML IV SCH (13:01)
--- NOTE | 2023-10-12 14:42 | PROVIDER PROGRESS NOTE ---
Assessment/Plan - Problem List (1) Acute respiratory failure with hypoxia Assessment/Plan: Due to combination of hypoventilation from Fentanyl, as well as aspiration pneumonitis seen on chest x-ray. Plan: He will be moved out of the ICU today Cont suppl O2, with target sats greater than 90%, weaning down to room air if poss Cont to treat underlying causes (2) Respiratory center depression Conclusion/Plan: The admitting Hospitalist wrote she postulated that this was an opiate overdose, fentanyl or heroin, or prescription drugs. He did awake to Narcan pushes, but was not on a Narcan drip. When I met him and awoke the patient and asked him what happened, he said "fentanyl" Today he is still mostly napping, but awakens and is able to speak with a louder voice and carry on a longer conversation. He is eating minimally however. Plan: He will be moved out of the ICU today Cont suppl O2, with target sats greater than 90% (3) Drug overdose Conclusion/Plan: When I awoke the patient at my first meeting him yesterday, and asked him what happened, he said "fentanyl" Today he is still mostly napping, but awakens and is able to speak with a louder voice and carry on a longer conversation. He is eating minimally however. Plan: Supportive care will be provided and symptom management be ongoing including antipyretics, antiemetics, etc. consult requested re: drug use (4) Aspiration into respiratory tract Conclusion/Plan: Patient was hypoxic due to the aspiration as well as the slowed respiratory rate. His hypoxia and WBC improved from 16 to 13, after antibx started Today he is expectorating brown sputum Plan: He was started on Unasyn, will cont this I will obtain sputum culture, and tailor antibx if needed (5) Elevated LFTs No known history of hepatitis according to his mom. We do not know if he is an IV drug abuser or an alcoholic. Possibly he was hypotensive to get shock liver. All labs were reviewed: AST 52>> 117>> 95 today, ALT 61>> 110>> 140 today, bili has been normal, Alk Phos 133 >> 84>> 69 today, also Lipase 128 and then normalized Plan: Avoid hepatotoxin tests that were sent out Await hepatitis panel sent out Follow LFTs daily Avoid hepatotoxin meds (6) Rhabdomyolysis Conclusion/Plan: CK 52 >> 2705>> 1416 today. This was likely from him being unconscious and laying in the same position for a long time Plan: Avoid nephrotoxins Continue with IV fluids while he is still somnolent and taking in very little oral fluids Follow CK till it definitely drops (7) Lactic acidosis. Resolved Most likely this was from his near respiratory arrest from what ever drug(s) he took. This could be because of the aspiration PNA as well. He also apparently has liver disease. He did not appear septic - Current Meds Current Meds: Current Medications Generic Name Dose Route Start Last Admin Trade Name Freq PRN Reason Stop Dose Admin Ampicillin Sodium/Sulbactam 100 mls @ 200 mls/hr 10/10/23 18:00 10/12/23 12:25 Sodium 1.5 gm/ Sodium Chloride IV Infused Q6HR ADINA Infusion Dextrose/Sodium Chloride 1,000 mls @ 83.333 mls/hr 10/11/23 12:00 10/12/23 13:01 D5ns IV 83.3 mls/hr .Q12H ADINA Administration Sodium Chloride 10 ml 10/10/23 13:40 10/11/23 06:08 Sodium Chloride Flush 0.9% 10 Ml Syringe IVP 10 ml PRN PRN Administration NEEDED PER PROVIDER ORDERS Sodium Chloride 10 ml 10/10/23 17:00 10/12/23 10:42 Sodium Chloride Flush 0.9% 10 Ml Syringe IVP Not Given 0100,0900,1700 ADINA - Lab Result Fish Bone Diagrams: 10/12/23 04:17 10/12/23 04:17 - Additional Planning My Orders: My Active Orders 10/12/23 07:52 Miscellaenous Nursing Order [RC] QSHIFT 10/12/23 11:37 CUL, RESPIRATORY [RM] Stat Subjective - Subjective Patient Reports: Feeling Better (He is slightly more awake. I walked in and found him napping in a sitting upright position, he was able to carry on a longer conversation then yesterday, but fell asleep quickly) Objective Vital Signs: Vital Signs - 24 hr 10/11/23 10/11/23 10/11/23 15:00 16:00 17:00 Temperature 36.7 C Heart Rate [ 71 73 69 Monitoring electrodes] Respiratory 16 12 14 Rate Blood Pressure 130/86 H 121/72 128/88 H [Right Brachial artery] O2 Saturation 94 95 96 If not protocol 2 2 2 : Oxygen Flow, liters/minute 10/11/23 10/11/23 10/11/23 18:00 19:00 20:00 Temperature 36.5 C Heart Rate [ 93 87 70 Monitoring electrodes] Respiratory 19 24 18 Rate Blood Pressure 140/75 H 143/87 H 123/65 [Right Brachial artery] O2 Saturation 95 96 95 If not protocol 2 2 2 : Oxygen Flow, liters/minute 10/11/23 10/11/23 10/11/23 21:00 22:00 23:00 Temperature Heart Rate [ 67 65 88 Monitoring electrodes] Respiratory 21 15 20 Rate Blood Pressure 116/59 L 107/67 107/69 [Right Brachial artery] O2 Saturation 94 96 95 If not protocol 2 2 2 : Oxygen Flow, liters/minute 10/11/23 10/12/23 10/12/23 23:30 00:00 01:00 Temperature Heart Rate [ 61 66 Monitoring electrodes] Respiratory 15 15 Rate Blood Pressure 110/72 129/75 [Right Brachial artery] O2 Saturation 95 96 If not protocol 2 2 2 : Oxygen Flow, liters/minute 10/12/23 10/12/23 10/12/23 02:00 03:00 04:00 Temperature 36.6 C Heart Rate [ 63 64 61 Monitoring electrodes] Respiratory 15 15 13 Rate Blood Pressure 112/70 109/68 109/70 [Right Brachial artery] O2 Saturation 96 97 96 If not protocol 2 2 2 : Oxygen Flow, liters/minute 10/12/23 10/12/23 10/12/23 05:00 06:00 07:00 Temperature 36.8 C Heart Rate [ 94 85 64 Monitoring electrodes] Respiratory 20 14 13 Rate Blood Pressure 144/66 H 110/67 111/70 [Right Brachial artery] O2 Saturation 96 96 97 If not protocol 2 2 2 : Oxygen Flow, liters/minute 10/12/23 10/12/23 10/12/23 08:00 09:00 09:42 Temperature Heart Rate [ 63 87 Monitoring electrodes] Respiratory 19 16 Rate Blood Pressure 117/78 126/73 [Right Brachial artery] O2 Saturation 98 94 If not protocol 2 2 2 : Oxygen Flow, liters/minute 10/12/23 10:00 Temperature 98.2 C H Heart Rate [ 74 Monitoring electrodes] Respiratory 26 H Rate Blood Pressure 126/78 [Right Brachial artery] O2 Saturation 94 If not protocol : Oxygen Flow, liters/minute Oxygen O2 Source Room air I&O (Last 24 Hrs): Intake and Output Totals x24h 10/10/23 10/11/23 10/12/23 23:59 23:59 23:59 Intake Total 2350 4840 1620.000 Output Total 975 2070 1125 Balance 1375 2770 495.000 General: Other (Lethargic) HEENT: Mucous membr. moist/pink Neck: Supple Neuro: Non Focal, Other (Lethargic) Cardiovascular: Regular rate Respiratory: No respiratory distress, Rhonchi Abdomen: Soft Extremities: No clubbing, No edema, No tenderness/swelling - Results Results: Laboratory Results WBC 11.5 x10^3/uL (4.8-10.8) H 10/12/23 04:17 RBC 4.50 10^6/uL (4.70-6.10) L 10/12/23 04:17 Hgb 11.9 g/dL (14.0-18.0) L 10/12/23 04:17 Hct 38.6 % (42.0-52.0) L 10/12/23 04:17 MCV 85.8 fL (80.0-94.0) 10/12/23 04:17 MCH 26.4 pg (27.0-31.0) L 10/12/23 04:17 MCHC 30.8 g/dL (32.0-36.0) L 10/12/23 04:17 RDW 14.6 % (12.0-15.0) 10/12/23 04:17 Plt Count 211 10^3/uL (130-450) 10/12/23 04:17 MPV 9.7 fL (7.4-11.4) 10/12/23 04:17 Neut # (Auto) 8.0 10^3/uL (1.5-6.6) H 10/12/23 04:17 Lymph # (Auto) 2.4 10^3/uL (1.5-3.5) 10/12/23 04:17 [place] # (Auto) 0.9 10^3/uL (0.0-1.0) 10/12/23 04:17 Eos # (Auto) 0.1 10^3/uL (0.0-0.7) 10/12/23 04:17 Baso # (Auto) 0.0 10^3/uL (0.0-0.1) 10/12/23 04:17 Absolute Nucleated RBC 0.00 x10^3/uL 10/12/23 04:17 Total Counted 100 10/11/23 04:45 Band Neuts % (Manual) 19 % (0-10) H 10/11/23 04:45 Abnorm Lymph % (Manual) 0 % 10/11/23 04:45 Metamyelocytes % 1 % (-0) H 10/11/23 04:45 Myelocytes % 1 % (-0) H 10/11/23 04:45 Nucleated RBC % 0.0 /100WBC 10/12/23 04:17 Neutrophils # (Manual) 8.2 10^3/uL (1.5-6.6) H 10/11/23 04:45 Lymphocytes # (Manual) 4.0 10^3/uL (1.5-3.5) H 10/11/23 04:45 Monocytes # (Manual) 1.2 10^3/uL (0.0-1.0) H 10/11/23 04:45 Eosinophils # (Manual) 0.0 10^3/uL (0-0.7) 10/11/23 04:45 Basophils # (Manual) 0.0 10^3/uL (0-0.1) 10/11/23 04:45 Differential Comment MANUAL DIFFERENTIAL 10/11/23 04:45 Platelet Estimate NORMAL (130-450,000) (NORMAL) 10/11/23 04:45 RBC Morph Micro Appear NORMAL APPEARANCE (NORMAL) 10/11/23 04:45 Bld Gas Analysis Time 1701 10/10/23 16:50 Sample Site RIGHT RADIAL 10/10/23 16:50 ABG pH 7.21 (7.35-7.45) L 10/10/23 16:50 ABG pCO2 56 mmHg (34-45) H 10/10/23 16:50 ABG pO2 72 mmHg (80-100) L 10/10/23 16:50 ABG HCO3 22.0 mmol/L (22.0-26.0) 10/10/23 16:50 ABG Total CO2 23.7 MMOL/L (21.0-29.0) 10/10/23 16:50 ABG O2 Saturation 94 % (94-98) 10/10/23 16:50 ABG Base Excess -6.8 mmol/L (-2.0-3.0) L 10/10/23 16:50 Satya Test POSITIVE 10/10/23 16:50 O2 Delivery Device NON REBREATHER MASK 10/10/23 16:50 FiO2 100.00 10/10/23 16:50 Sodium 136 mmol/L (135-145) 10/12/23 04:17 Potassium 3.8 mmol/L (3.5-4.5) 10/12/23 04:17 Chloride 101 mmol/L (101-111) 10/12/23 04:17 Carbon Dioxide 31 mmol/L (21-32) 10/12/23 04:17 Anion Gap 4.0 (6-13) L 10/12/23 04:17 BUN 14 mg/dL (6-20) 10/12/23 04:17 Creatinine 0.8 mg/dL (0.6-1.3) 10/12/23 04:17 Estimated GFR (MDRD) 108 (>89) 10/12/23 04:17 Glucose 125 mg/dL (74-104) H 10/12/23 04:17 Lactic Acid 1.4 mmol/L (0.5-2.2) 10/11/23 04:45 Calcium 9.0 mg/dL (8.5-10.3) 10/12/23 04:17 Magnesium 2.1 mg/dL (1.7-2.3) 10/10/23 10:30 Ferritin 496.4 ng/mL (23.9-336.2) H 10/11/23 04:45 Total Bilirubin 0.5 mg/dL (0.2-1.0) 10/12/23 04:17 AST 95 IU/L (10-42) H 10/12/23 04:17 ALT 140 IU/L (10-60) H 10/12/23 04:17 Alkaline Phosphatase 69 IU/L (42-121) 10/12/23 04:17 Total Creatine Kinase 1416 IU/L (30-223) H* 10/12/23 04:17 B-Natriuretic Peptide 37 pg/mL (5-100) 10/10/23 10:30 Total Protein 5.9 g/dL (6.4-8.9) L 10/12/23 04:17 Albumin 3.4 g/dL (3.2-5.5) 10/12/23 04:17 Globulin 2.5 g/dL (2.1-4.2) 10/12/23 04:17 Albumin/Globulin Ratio 1.4 (1.0-2.2) 10/12/23 04:17 Ceruloplasmin 23.9 mg/dL (16.0-31.0) 10/11/23 08:51 Lipase 23 U/L (11-82) 10/11/23 04:45 TSH 2.53 uIU/mL (0.34-5.60) 10/10/23 10:30 Urine Color YELLOW 10/10/23 16:50 Urine Clarity CLEAR (CLEAR) 10/10/23 16:50 Urine pH 5.5 PH (5.0-7.5) 10/10/23 16:50 Ur Specific [place] >=1.030 (1.002-1.030) H 10/10/23 16:50 Urine Protein 100 mg/dL (NEGATIVE) H 10/10/23 16:50 Urine Glucose (UA) NEGATIVE mg/dL (NEGATIVE) 10/10/23 16:50 Urine Ketones NEGATIVE mg/dL (NEGATIVE) 10/10/23 16:50 Urine Occult Blood SMALL (NEGATIVE) H 10/10/23 16:50 Urine Nitrite NEGATIVE (NEGATIVE) 10/10/23 16:50 Urine Bilirubin NEGATIVE (NEGATIVE) 10/10/23 16:50 Urine Urobilinogen 0.2 (NORMAL) E.U./dL (NORMAL) 10/10/23 16:50 Ur Leukocyte Esterase NEGATIVE (NEGATIVE) 10/10/23 16:50 Urine RBC 0-5 /HPF (0-5) 10/10/23 16:50 Urine WBC 0-3 /HPF (0-3) 10/10/23 16:50 Ur Squamous Epith Cells FEW Squamous (<= Few) 10/10/23 16:50 Urine Bacteria Few /HPF (None Seen) 10/10/23 16:50 Ur Microscopic Review INDICATED 10/10/23 16:50 Urine Culture Comments NOT INDICATED 10/10/23 16:50 Nasal Adenovirus (PCR) NOT DETECTED 10/10/23 16:50 Nasal B. parapertussis DNA (PCR) NOT DETECTED 10/10/23 16:50 Nasal Coronavir 229E PCR NOT DETECTED 10/10/23 16:50 Nasal Coronavir HKU1 PCR NOT DETECTED 10/10/23 16:50 Nasal Coronavir NL63 PCR NOT DETECTED 10/10/23 16:50 Nasal Coronavir OC43 PCR NOT DETECTED 10/10/23 16:50 Nasal Enterovir/Rhinovir PCR NOT DETECTED 10/10/23 16:50 Nasal Influenza B PCR NOT DETECTED 10/10/23 16:50 Nasal Influenza A PCR NOT DETECTED 10/10/23 16:50 Nasal Parainfluen 1 PCR NOT DETECTED 10/10/23 16:50 Nasal Parainfluen 2 PCR NOT DETECTED 10/10/23 16:50 Nasal Parainfluen 3 PCR NOT DETECTED 10/10/23 16:50 Nasal Parainfluen 4 PCR NOT DETECTED 10/10/23 16:50 Nasal RSV (PCR) NOT DETECTED 10/10/23 16:50 Nasal Screen MRSA (PCR) NEGATIVE (NEGATIVE) 10/10/23 16:50 Nasal B.pertussis DNA PCR NOT DETECTED 10/10/23 16:50 Nasal C.pneumoniae (PCR) NOT DETECTED 10/10/23 16:50 Bigg Human Metapneumo PCR NOT DETECTED 10/10/23 16:50 Nasal M.pneumoniae (PCR) NOT DETECTED 10/10/23 16:50 Nasal SARS-CoV-2 (PCR) NOT DETECTED 10/10/23 16:50 Salicylates < 1.5 mg/dL 10/10/23 10:30 Urine Opiates Screen NEGATIVE (NEGATIVE) 10/10/23 16:50 Ur Oxycodone Screen NEGATIVE (NEGATIVE) 10/10/23 16:50 Urine Methadone Screen NEGATIVE (NEGATIVE) 10/10/23 16:50 Ur Propoxyphene Screen NEGATIVE (NEGATIVE) 10/10/23 16:50 Acetaminophen 0.2 ug/mL 10/10/23 10:30 Ur Barbiturates Screen NEGATIVE (NEGATIVE) 10/10/23 16:50 Ur Tricyclics Screen NEGATIVE (NEGATIVE) 10/10/23 16:50 Ur Phencyclidine Scrn NEGATIVE (NEGATIVE) 10/10/23 16:50 Ur Amphetamine Screen NEGATIVE (NEGATIVE) 10/10/23 16:50 U Methamphetamines Scrn NEGATIVE (NEGATIVE) 10/10/23 16:50 U Benzodiazepines Scrn NEGATIVE (NEGATIVE) 10/10/23 16:50 Urine Cocaine Screen POSITIVE (NEGATIVE) H 10/10/23 16:50 U Cannabinoids Screen POSITIVE (NEGATIVE) H 10/10/23 16:50 Ethyl Alcohol < 10.0 mg/dL 10/10/23 10:30 Hepatitis A IgM Ab Negative (Negative) 10/11/23 08:51 Hep Bs Antigen Negative (Negative) 10/11/23 08:51 Hep B Core IgM Ab Negative (Negative) 10/11/23 08:51 Hepatitis C Antibody Non Reactive (Non Reactive) 10/11/23 08:51 Hepatitis C Interp Comment (.) 10/11/23 08:51
[2023-10-12 18:07] LABS: ANTI-DNA (DS) AB QN <1 IU/mL (0-9); CENTROMERE B ANTIBODIES <0.2 AI (0.0-0.9); CHROMATIN ANTIBODIES <0.2 AI (0.0-0.9); JO-1 AB <0.2 AI (0.0-0.9); RIBOSOMAL P ANTIBODIES <0.2 AI (0.0-0.9); RNP ANTIBODIES <0.2 AI (0.0-0.9); SCLERODERMA-70 ANTIBODIES <0.2 AI (0.0-0.9); SJOGREN'S ANTI-SS-A <0.2 AI (0.0-0.9); SJOGREN'S ANTI-SS-B <0.2 AI (0.0-0.9); SMITH ANTIBODIES <0.2 AI (0.0-0.9); SMITH/RNP ANTIBODIES <0.2 AI (0.0-0.9)
[2023-10-13] MEDS: DEXTROSE 5%-0.9% NACL 1,000 ML IV SCH (01:37)
[2023-10-13] MEDS: AMPICILLIN/SULBACTAM 1.5 GM in SODIUM CHLORIDE 0.9% MINIBAG 100 ML IV SCH (05:50)
[2023-10-13 08:22] LABS: CALCIUM 9.3 mg/dL (8.5-10.3); POTASSIUM 3.7 mmol/L (3.5-4.5)
[2023-10-13 08:23] VITALS: BP 148/90; O2SAT 94
--- NOTE | 2023-10-13 08:44 | Discharge Plan ---
Discharge Plan Problem Reviewed?: Yes Disposition: Home, Self Care Condition: Fair Prescriptions: Amox/Clav 875/125 [Augmentin 875/125 Tab] 1 tablet PO BID 4 Days #8 tablet Diet: Regular Activity Restrictions: Activity as Tolerated Shower Restrictions: No Driving Restrictions: No Health Concerns: You were in critical condition when you arrived to our ER. You had probably overdosed on Fentanyl, and you were barely breathing, and almost needed to be put on a ventilator breathing machine. We found that you had aspirated your stomach contents into your lungs causing a pneumonia. You needed oxygen for support and you were overly sleepy for 48 hours. When you awoke, you described that you had taken Fentanyl. Please stop using Fentanyl, which almost caused you to overdose and . You are being discharged home today. You need several more days of oral antibiotics to treat the pneumonia. A prescription for Augmentin was sent to our [facility] pharmacy in [place]. Plan of Treatment: As above. Care Goals: Improvement in symptoms and stabilization are the goals. Assessment: These instructions are provided for you as a reminder. No Smoking: If you smoke, Please STOP! Call for help.
--- NOTE | 2023-10-13 08:47 | DISCHARGE SUMMARY ---
Discharge Summary Admit Date: 10/10/23 Discharge Date: 10/13/23 Discharging Provider: Dr Yue Anderson Primary Care Provider: None Condition at Discharge: Fair Discharge Disposition: 01 Home, Self Care - HPI History of Present Illness: This is a 38-year-old male who lives in [facility] in [place]. 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 The patient is unable to give any meaningful history because of his sleepiness. I was able to get a hold of his mom who states that he does smoke cigarettes and he does smoke marijuana, but he has no history of alcohol abuse nor has he ever tried cocaine/heroi n/LSD/methamphetamines to her knowledge. He was brought in by EMS. He was found in his car, it was [place] and running [place] the [place] in [place]. He was in agonal respiration with O2 sat "l ow" but the number not stated. He received Narcan with minimal response. When he came to the emergency room temperature was 36, heart rate 129, blood pressure 129/92, respirations 6, and 84% on nasal cannula oxygen. In the emergency room the ER provider gave him Narcan IV push. He does wake up but is not verbal. Eyes were open but then he falls right back asleep. He received 2 L of IV fluids wide open. Chest x-ray had left lung multifocal opacity suggestive of aspiration. He was given Rocephin and azithromycin in the ER to treat that. He continues to be sleeping, minimally responsive, with normal vital signs. However he is on a 15 L nonrebreather and 02 sats at 97%. Emergency room provider has asked us to bring the patient in for xxpectant waiting. Hopefully he will recover from the substance he ingested. I specifically asked if he should go to the ICU or if he should be on a Narcan drip. At this time the emergency room provider I feel he does not need to do those things. In speaking to case management and reviewing [place] criteria, he meets criteria for inpatient status. - HOSPITAL COURSE Hospital Course: (1) Acute respiratory failure with hypoxia Due to combination of hypoventilation from Fentanyl, as well as aspiration pneumonitis seen on chest x-ray. He required high supplemental O2, was in the ICU, but did not need intubation. Slowly the supplemental O2 was weaned down to room air before discharge. (2) Respiratory center depression At admission, it was postulated that this was an opiate overdose, fentanyl or heroin, or prescription drugs. He did awake to Narcan pushes, but was not put on a Narcan drip. When he awoke, the patient was asked what happened, he answered "Fentanyl". Patient was somnolent for 3 days, slowly awoke and was able to be discharged on 10/13/2023 (3) Drug overdose When he eventually awoke, the patient was asked what happened, and he simply answered "Fentanyl". He was advised to stop. SW was consulted and he refused any assistance for substance abuse. (4) Aspiration into respiratory tract Patient was hypoxic and WBC improved (from 16) after empiric antibx Unasyn was started. He eventually was expectorating brown sputum, which was sent for culture and it had no growth to date. At discharge, he was prescribed 4 more days of Augmentin BID. (5) Elevated LFTs No known history of hepatitis according to his mom. We did not know if he is an IV drug abuser or an alcoholic. Possibly he was hypotensive and got shock liver. His AST 52>> 117>> 95. ALT 61>> 110>> 140. Bili was normal. Alk Phos 133 >> 84>> 69. His Lipase of 128 normalized the next day. Several labs were send outs and were pending at the time of discharge: Hepatitis panel, Liver-kidney microsomal panel, JOAN and Actin antibody. (6) Rhabdomyolysis This was likely from him being unconscious and laying in the same position for a long time. CK was 52 >> 2705>> 1416>> 966 at discharge, after iv hydration for many days. (7) Lactic acidosis. It was most likely from his near respiratory arrest from what ever drug(s) he took. He also apparently has liver disease. This could have been from his aspiration PNA as well, but he did not appear septic. It resolved with iv fluids. - ALLERGIES Allergies/Adverse Reactions: Allergies Allergy/AdvReac Type Severity Reaction Status Date / Time No Known Drug Allergies Allergy Verified 10/10/23 10:49 - MEDICATIONS Home Medications: Ambulatory Orders Medication Instructions Recorded Confirmed Amox/Clav 875/125 [Augmentin 1 tablet PO BID 4 Days #8 tablet 10/13/23 875/125 Tab] - PHYSICAL EXAM AT DISCHARGE General Appearance: positive: No acute distress, Lethargic, Other (Disheveled) Eyes Bilateral: positive: Normal inspection, EOMI ENT: positive: ENT inspection nml, No signs of dehydration Neck: positive: Nml inspection, No JVD Respiratory: positive: No respiratory distress, Rhonchi (L base) Abdomen: positive: Non-tender, Nml bowel sounds, No distention Skin: positive: Warm, Dry Extremities: positive: Non-tender, No pedal edema Neurologic/Psychiatric: positive: Oriented x3, CN's nml (2-12), Motor nml, Other (Lethargic) - LABS Result Diagrams: 10/12/23 04:17 10/13/23 07:57 - DIAGNOSTIC IMAGING Diagnostic Imaging Results: Final report reviewed - TIME SPENT Time Spent in Discharge (Minutes): 30
[2023-10-13] MEDS: SODIUM CHLORIDE FLUSH 0.9% 10 ML SYRINGE IVP SCH (08:52)
[2023-10-13 11:10] LABS: ACTIN (SMOOTH MUSCLE) ANTIBODY 5 Units (0-19)
== END 2023-10-13 09:25 | disposition home or self-care (01) | DRG 917 ==
LOC: ED 10:17 → MS2 13:40 → OBSVTOIN 16:22 → ICU 16:31 → MS2 10-12 11:56
PROVIDERS: ADMIT Specialist; ATTEND Internal Medicine
DX: T40.414A Poisoning by fentanyl or fentanyl analogs, undetermined, initial encounter (principal); J69.0 Pneumonitis due to inhalation of food and vomit; J96.01 Acute respiratory failure with hypoxia; M62.82 Rhabdomyolysis; E87.20 Acidosis, unspecified; F11.23 Opioid dependence with withdrawal; F17.210 Nicotine dependence, cigarettes, uncomplicated; G93.89 Other specified disorders of brain; R79.89 Other specified abnormal findings of blood chemistry; K76.9 Liver disease, unspecified; T17.908A Unspecified foreign body in respiratory tract, part unspecified causing other injury, initial encounter
CPT/HCPCS: 36415; 36600; 71045; 80048; 80053; 80074; 80306; 80307; 80320; 80329; 81001; 82390; 82550; 82728; 82803; 83516; 83605; 83690; 83735; 83880; 84443; 85025; 86015; 86225; 86235; 86376; 87040; 87070; 87150; 87205; 87633; 93005; 96365; 96375; 99285; G0378; J2060; 81003; 87086

== ENCOUNTER 2024-01-02 07:21 | Outpatient (CLI) | payer MEDICAID | END 2024-01-02 23:59 | disposition critical access hospital (66) | LOC: EMS 07:21 | DX: T40.5X1A Poisoning by cocaine, accidental (unintentional), initial encounter (principal); T40.411A Poisoning by fentanyl or fentanyl analogs, accidental (unintentional), initial encounter | CPT/HCPCS: A0425; A0427; A0999 ==

== ENCOUNTER 2024-01-02 07:41 | Emergency (ER) | payer MEDICAID ==
--- NOTE | 2024-01-02 08:09 | ED Physician Documentation ---
PD HPI ALTERED MENTAL STATUS - Stated complaint Stated Complaint: OD - Chief complaint Chief Complaint: Resp - History obtained from History obtained from: Patient, EMS - History of Present Illness Timing - onset: How many minutes ago (30), Today Timing - duration: Other (unknown duration as found beside his car unresponsive by passersby. EMS called and PD. Narcan given by officer, but not immediately awake. Assisted breathing with BVM by Medics for 5-10 minutes then pt awoke slowly. Alert and conversant with normal sats/vitals by ED arrival. Reportedly cocaine/fent.) Timing - details: Now resolved Quality / character: Unresponsive Associated symptoms: No: Headache, Focal weakness, Seizure activity Contributing factors: Substance abuse (reportedly had smoked/inhaled cocaine and opioid (likely Fentanyl per pt).) Basline status: Alert and oriented X 3, Ambulatory Similar symptoms before: Diagnosis (had overdose with respiratory depression and was in ICU for couple days.) Review of Systems Constitutional: denies: Fever Cardiac: denies: Chest pain / pressure Respiratory: denies: Cough GI: denies: Abdominal Pain Neurologic: denies: Headache, Head injury PD PAST MEDICAL HISTORY - Past Medical History Past Medical History: No Cardiovascular: None Respiratory: None Neuro: None Endocrine/Autoimmune: None GI: None : None HEENT: None Psych: None Musculoskeletal: None - Past Surgical History Past Surgical History: No - Present Medications Home Medications: Ambulatory Orders Medication Instructions Recorded Confirmed No Known Home Medications 01/02/24 01/02/24 - Allergies Allergies/Adverse Reactions: Allergies Allergy/AdvReac Type Severity Reaction Status Date / Time No Known Drug Allergies Allergy Verified 01/02/24 07:51 - Social History Does the pt smoke?: No Smoking Status: Never smoker - POLST Patient has POLST: No POLST Status: Full Code PD ED PE NORMAL - Vitals Vital signs reviewed: Yes - General General: Alert and oriented X 3, No acute distress, Well developed/nourished - HEENT HEENT: Atraumatic, Pharynx benign - Neck Neck: Supple, no meningeal sign, No adenopathy - Cardiac Cardiac: RRR, No murmur - Respiratory Respiratory: Clear bilaterally - Abdomen Abdomen: Soft, Non tender - Derm Derm: Normal color, Warm and dry - Neuro Neuro: Alert and oriented X 3, No motor deficit, No sensory deficit Results - Vitals Vitals: Vital Signs - 24 hr 01/02/24 01/02/24 01/02/24 07:47 08:56 10:00 Temperature 36.4 C L Heart Rate 106 H 86 74 Respiratory 19 16 12 Rate Blood Pressure 146/102 H 124/87 H 143/95 H O2 Saturation 97 97 95 01/02/24 01/02/24 01/02/24 11:00 12:00 13:00 Temperature 36.8 C 36.8 C Heart Rate 80 80 88 Respiratory 18 14 14 Rate Blood Pressure 121/79 117/71 128/90 H O2 Saturation 92 94 98 Oxygen O2 Source Room air - Labs Labs: Laboratory Tests 01/02/24 01/02/24 01/02/24 08:41 08:41 08:45 WBC 19.0 H RBC 5.46 Hgb 14.3 Hct 46.1 MCV 84.4 MCH 26.2 L MCHC 31.0 L RDW 14.6 Plt Count 327 MPV 9.2 Neut # (Auto) 16.7 H Lymph # (Auto) 0.9 L [place] # (Auto) 1.3 H Eos # (Auto) 0.0 Baso # (Auto) 0.1 Absolute Nucleated RBC 0.00 Nucleated RBC % 0.0 Sodium 138 Potassium 4.7 H Chloride 101 Carbon Dioxide 26 Anion Gap 11.0 BUN 13 Creatinine 1.2 Estimated GFR (MDRD) 67 L Glucose 150 H Calcium 9.8 Magnesium 1.9 Total Bilirubin 0.3 AST 24 ALT 34 Alkaline Phosphatase 102 Total Creatine Kinase 470 H Total Protein 8.4 Albumin 4.8 Globulin 3.6 Albumin/Globulin Ratio 1.3 Lipase 29 TSH 1.39 Urine Color Urine Clarity Urine pH Ur Specific [place] Urine Protein Urine Glucose (UA) Urine Ketones Urine Occult Blood Urine Nitrite Urine Bilirubin Urine Urobilinogen Ur Leukocyte Esterase Ur Microscopic Review Urine Culture Comments Salicylates < 1.5 Urine Opiates Screen Ur Buprenorphine Scrn Ur Oxycodone Screen Urine Methadone Screen Acetaminophen < 0.1 Ur Barbiturates Screen Ur Tricyclics Screen Ur Phencyclidine Scrn Ur Amphetamine Screen U Methamphetamines Scrn U Benzodiazepines Scrn Urine Cocaine Screen U Cannabinoids Screen Ur Drug Screen Comment Ethyl Alcohol < 10.0 SARS-CoV-2 (PCR) NOT DETECTED 01/02/24 10:05 WBC RBC Hgb Hct MCV MCH MCHC RDW Plt Count MPV Neut # (Auto) Lymph # (Auto) [place] # (Auto) Eos # (Auto) Baso # (Auto) Absolute Nucleated RBC Nucleated RBC % Sodium Potassium Chloride Carbon Dioxide Anion Gap BUN Creatinine Estimated GFR (MDRD) Glucose Calcium Magnesium Total Bilirubin AST ALT Alkaline Phosphatase Total Creatine Kinase Total Protein Albumin Globulin Albumin/Globulin Ratio Lipase TSH Urine Color DARK YELLOW Urine Clarity CLEAR Urine pH 6.0 Ur Specific [place] 1.025 Urine Protein NEGATIVE Urine Glucose (UA) 500 H Urine Ketones NEGATIVE Urine Occult Blood NEGATIVE Urine Nitrite NEGATIVE Urine Bilirubin NEGATIVE Urine Urobilinogen 0.2 (NORMAL) Ur Leukocyte Esterase NEGATIVE Ur Microscopic Review NOT INDICATED Urine Culture Comments NOT INDICATED Salicylates Urine Opiates Screen NEGATIVE Ur Buprenorphine Scrn NEGATIVE Ur Oxycodone Screen NEGATIVE Urine Methadone Screen NEGATIVE Acetaminophen Ur Barbiturates Screen NEGATIVE Ur Tricyclics Screen NEGATIVE Ur Phencyclidine Scrn NEGATIVE Ur Amphetamine Screen NEGATIVE U Methamphetamines Scrn NEGATIVE U Benzodiazepines Scrn NEGATIVE Urine Cocaine Screen POSITIVE H U Cannabinoids Screen NEGATIVE Ur Drug Screen Comment CUTOFF CONC BELOW: Ethyl Alcohol SARS-CoV-2 (PCR) PD Medical Decision Making - ED course Complexity details: reviewed results (UTox positive for cocaine. Negative for opiates, so less likely heorin and more likely fentanyl, which he subseuqntly admitted to. ), considered differential, d/w patient, d/w family (mother subseuqnetly arrived and tried to encourage pt to go to detox/rehab but he does not want to at this time. SW also talked with him with same reply. No suicidal ideation nor intent. He plans to continue to use drugs. I encourage him for moderation so he does not overdose/. ) ED course: The patient had apparent overdose of likely mostly opioid but with cocaine as well. He has remained awake and conversant with normal HR, sats, repeat BP during ED (watched on library monitor). Due to the potential of longer duration of Fentanyl if more chronic use (would then have fat stores in addition to the current dosing)he was watched several hours in the ER (5 total subsequently). Social Work talked with him. Mother was here to give ride and tried to convince him to go to Detox. Pt wants to be discharged. Given Narcan nasal spray kit. The pt feels he is able to titrate the amount of drugs he takes so as to not overdose (despite evidence to the contrary with 2 overdose episodes in couple of months). I told him the risk of with continued drug use, given the accidental overdoses is quite high, and should strongly consdier detox/rehab/stopping use. He expresses deire to continue drug use, so I did not Rx any meds for withdrawal, such as suboxone. Departure - Departure Disposition: 01 Home, Self Care Clinical Impression: Accidental drug overdose, Altered mental status, Polysubstance use disorder Condition: Stable Record reviewed to determine appropriate education?: Yes Instructions: ED Overdose Accidental Comments: We did provide you with a list of local treatment centers and programs should you decide to seek substance use treatment. Otherwise try to avoid drug use. If you are using drugs, try to have moderation in the doses so you do not end up overdosed. We did provide you with a Narcan kit. Further doses and medications can be obtained from the pharmacies without a prescription. Stay well-hydrated. Your basic blood tests here were fairly normal. We did do a COVID test that was negative. Forms: PCP List Discharge Date/Time: 01/02/24 13:27
[2024-01-02] MEDS: SODIUM CHLORIDE 0.9% 1,000 ML IV STA (08:32)
[2024-01-02 08:50] LABS: BASOPHILS # (AUTO) 0.1 10^3/uL (0.0-0.1); BASOPHILS % (AUTO) 0.4 %; EOSINOPHILS % (AUTO) 0.2 %; HCT - HEMATOCRIT 46.1 % (42.0-52.0); HGB - HEMOGLOBIN 14.3 g/dL (14.0-18.0); LYMPHOCYTES # (AUTO) 0.9 10^3/uL (1.5-3.5); LYMPHOCYTES % (AUTO) 4.6 %; MEAN CORPUSCULAR HEMOGLOBIN 26.2 pg (27.0-31.0); MEAN CORPUSCULAR VOLUME 84.4 fL (80.0-94.0); MEAN PLATELET VOLUME 9.2 fL (7.4-11.4); MONOCYTES # (AUTO) 1.3 10^3/uL (0.0-1.0); MONOCYTES % (AUTO) 6.6 %; NEUTROPHILS # (AUTO) 16.7 10^3/uL (1.5-6.6); NEUTROPHILS % (AUTO) 87.5 %; PLT - PLATELET COUNT 327 10^3/uL (130-450); RED BLOOD COUNT 5.46 10^6/uL (4.70-6.10); RED CELL DISTRIBUTION WIDTH 14.6 % (12.0-15.0)
[2024-01-02 09:08] LABS: ALBUMIN 4.8 g/dL (3.2-5.5); ALBUMIN/GLOBULIN RATIO 1.3 (1.0-2.2); ALKALINE PHOSPHATASE 102 IU/L (42-121); ALT ALANINE AMINOTRANSFERASE 34 IU/L (10-60); AST ASPARTATE AMINOTRANSFERASE 24 IU/L (10-42); BILIRUBIN,TOTAL 0.3 mg/dL (0.2-1.0); BUN - BLOOD UREA NITROGEN 13 mg/dL (6-20); CALCIUM 9.8 mg/dL (8.5-10.3); CARBON DIOXIDE - CO2 26 mmol/L (21-32); CHLORIDE 101 mmol/L (101-111); CK- CREATINE KINASE 470 IU/L (30-223); CREATININE 1.2 mg/dL (0.6-1.3); ETOH - ETHANOL < 10.0 mg/dL; GFR - MDRD 67 (>89); GLUCOSE 150 mg/dL (74-104); LIPASE 29 U/L (11-82); MAGNESIUM 1.9 mg/dL (1.7-2.3); POTASSIUM 4.7 mmol/L (3.5-4.5); SODIUM 138 mmol/L (135-145); TOTAL PROTEIN 8.4 g/dL (6.4-8.9)
[2024-01-02 09:22] LABS: ACETAMINOPHEN < 0.1 ug/mL; SALICYLATE < 1.5 mg/dL; THYROID STIMULATING HORMONE 1.39 uIU/mL (0.34-5.60)
[2024-01-02 10:19] LABS: BILIRUBIN,URINE NEGATIVE (NEGATIVE); GLUCOSE, URINE (UA) 500 mg/dL (NEGATIVE); KETONES,URINE (UA) NEGATIVE (NEGATIVE); LEUKOCYTE ESTERASE, URINE NEGATIVE (NEGATIVE); NITRITE,URINE NEGATIVE (NEGATIVE); OCCULT BLOOD,URINE NEGATIVE (NEGATIVE); PROTEIN,URINE NEGATIVE (NEGATIVE); UROBILINOGEN,URINE 0.2 (NORMAL) E.U./dL (NORMAL)
[2024-01-02 10:21] LABS: CLARITY,URINE CLEAR (CLEAR)
[2024-01-02 10:28] LABS: COCAINE SCREEN URINE POSITIVE (NEGATIVE); THC CANNABINOID SCREEN, URINE NEGATIVE (NEGATIVE)
[2024-01-02 10:29] LABS: AMPHETAMINE SCREEN,URINE NEGATIVE (NEGATIVE); BARBITURATE SCREEN,UR NEGATIVE (NEGATIVE); BENZODIAZEPINES SCREEN, URINE NEGATIVE (NEGATIVE); BUPRENORPHINE SCREEN, URINE NEGATIVE (NEGATIVE); METHADONE SCREEN, URINE NEGATIVE (NEGATIVE); METHAMPHETAMINES SCREEN, URINE NEGATIVE (NEGATIVE); OPIATE SCREEN, URINE NEGATIVE (NEGATIVE); OXYCODONE SCREEN, URINE NEGATIVE (NEGATIVE); TRICYCLIC ANTIDEPRESSANT,URINE NEGATIVE (NEGATIVE)
[2024-01-02 13:11] VITALS: BP 128/90; O2SAT 98
[2024-01-02] MEDS: NALOXONE HCL NASAL SPRAY KIT NAS STA (13:24)
== END 2024-01-02 13:27 | disposition home or self-care (01) ==
LOC: EDUNIT# → ED 07:41
DX: R41.82 Altered mental status, unspecified (principal); T50.911A Poisoning by multiple unspecified drugs, medicaments and biological substances, accidental (unintentional), initial encounter; F19.90 Other psychoactive substance use, unspecified, uncomplicated; Z11.52 Encounter for screening for COVID-19
CPT/HCPCS: 36415; 80053; 80143; 80179; 80306; 81003; 82077; 82550; 83690; 83735; 84443; 85025; 87635; 93005; 99284; G2215; 81001; 87086

== ENCOUNTER 2024-02-27 07:48 | Outpatient (CLI) | payer MEDICAID ==
[2024-02-27 12:12] LABS: BASOPHILS # (AUTO) 0.1 10^3/uL (0.0-0.1); BASOPHILS % (AUTO) 0.9 %; EOSINOPHILS # (AUTO) 0.3 10^3/uL (0.0-0.7); EOSINOPHILS % (AUTO) 3.8 %; HCT - HEMATOCRIT 52.1 % (42.0-52.0); HGB - HEMOGLOBIN 15.9 g/dL (14.0-18.0); LYMPHOCYTES # (AUTO) 3.2 10^3/uL (1.5-3.5); MEAN CORPUSCULAR HEMOGLOBIN 25.8 pg (27.0-31.0); MEAN CORPUSCULAR HGB CONC 30.5 g/dL (32.0-36.0); MEAN CORPUSCULAR VOLUME 84.6 fL (80.0-94.0); MEAN PLATELET VOLUME 10.1 fL (7.4-11.4); MONOCYTES # (AUTO) 0.8 10^3/uL (0.0-1.0); MONOCYTES % (AUTO) 11.6 %; NEUTROPHILS # (AUTO) 2.7 10^3/uL (1.5-6.6); NEUTROPHILS % (AUTO) 38.6 %; PLT - PLATELET COUNT 319 10^3/uL (130-450); RED BLOOD COUNT 6.16 10^6/uL (4.70-6.10); RED CELL DISTRIBUTION WIDTH 14.6 % (12.0-15.0); WHITE BLOOD COUNT 7.1 x10^3/uL (4.8-10.8)
[2024-02-27 12:47] LABS: ALBUMIN 4.7 g/dL (3.2-5.5); ALBUMIN/GLOBULIN RATIO 1.3 (1.0-2.2); ALKALINE PHOSPHATASE 109 IU/L (42-121); ALT ALANINE AMINOTRANSFERASE 44 IU/L (10-60); AST ASPARTATE AMINOTRANSFERASE 31 IU/L (10-42); BILIRUBIN,TOTAL 0.7 mg/dL (0.2-1.0); BUN - BLOOD UREA NITROGEN 13 mg/dL (6-20); CALCIUM 10.5 mg/dL (8.5-10.3); CARBON DIOXIDE - CO2 28 mmol/L (21-32); CHLORIDE 104 mmol/L (101-111); CHOL/HDL RATIO 6.1 (<5.0); CHOLESTEROL 256 mg/dL; GFR - MDRD 83 (>89); GLUCOSE 101 mg/dL (74-104); HDL CHOLESTEROL 42 mg/dL; LDL CHOLESTEROL,CALCULATED 184 mg/dL; LDL/HDL RATIO 4.4 (<3.6); POTASSIUM 3.9 mmol/L (3.5-4.5); SODIUM 138 mmol/L (135-145); TOTAL PROTEIN 8.3 g/dL (6.4-8.9); TRIGLYCERIDES 150 mg/dL (48-352); VLDL CHOLESTEROL 30 mg/dL
[2024-02-28 05:12] LABS: RPR Non Reactive (Non Reactive)
[2024-02-28 07:10] LABS: HIV SCREEN 4TH GENERATION Non Reactive (Non Reactive)
== END 2024-02-27 07:49 | disposition home or self-care (01) ==
LOC: LAB.N 07:48
PROVIDERS: ATTEND Registered Nurse
DX: Z11.3 Encounter for screening for infections with a predominantly sexual mode of transmission (principal); Z11.1 Encounter for screening for respiratory tuberculosis; Z13.228 Encounter for screening for other metabolic disorders; Z13.220 Encounter for screening for lipoid disorders; Z13.29 Encounter for screening for other suspected endocrine disorder; Z13.0 Encounter for screening for diseases of the blood and blood-forming organs and certain disorders involving the immune mechanism
CPT/HCPCS: 36415; 80050; 80061; 81599; 83721; 86592; 87389